=== PATIENT | male | born 1980 | race Caucasian/White ===

== ENCOUNTER 2016-04-06 20:31 | Emergency (ER) | payer OTHER ==
[~2016-04-06] VITALS: Ht 180.3 cm; Wt 104.6 kg
[~2016-04-06 20:31] MED LIST: IBUP-1050 PO; NRN/300 PO
[2016-04-06 20:40] VITALS: TEMP 37
[2016-04-06] MEDS ORDERED: CYM/30 PO (21:27)
[2016-04-06] MEDS ORDERED: MISCTAB PO (21:28)
[2016-04-06] MEDS ORDERED: [UNRECOGNIZED DRUG - OTHER] NAE (21:29)
[2016-04-06] MEDS ORDERED: ALBUT/IPRATROP 3MG/0.5MG NEB 3 ML VIAL INH STA (21:29)
[2016-04-06] MEDS ORDERED: ALBUT/IPRATROP 3MG/0.5MG NEB 3 ML VIAL ONE (21:29)
[2016-04-06 21:35] VITALS: O2SAT 96
--- NOTE | 2016-04-06 21:43 | DIAGNOSTIC IMAGING REPORT ---
SINGLE VIEW CHEST CLINICAL HISTORY: Dyspnea. FINDINGS: An AP, portable, upright chest radiograph is compared to study dated 03/23/2015. The examination is degraded by portable technique and patient rotation. The cardiomediastinal silhouette is top normal for projection. Chronic interstitial thickening is unchanged. No airspace consolidation or pleural effusion is identified. No pneumothorax is seen. The bony thorax is grossly intact. Fusion hardware is noted in the lower cervical spine. IMPRESSION: No active disease in the chest. Electronically signed by: Rolando Lowery M.D. 04/06/2016 9:42 PM Dictated Date/Time: 04/06/2016 9:41 PM
[2016-04-06] MEDS ORDERED: PROCHLORPERAZINE 5 MG/ML 2 ML VIAL IV STA (21:48)
[2016-04-06] MEDS ORDERED: KETOROLAC TROMETHAMINE 30 MG/ML VIAL IV STA (21:48)
[2016-04-06] MEDS ORDERED: SODIUM CHLORIDE 0.9% 1000ML 1,000 ML IV STA (21:48)
[2016-04-06] MEDS ORDERED: DiphenhydrAMINE HCL 50 MG/ML VIAL IV STA (21:48)
[2016-04-06] MEDS ORDERED: METHYLPREDNISOLONE 125 MG VIAL IV STA (21:48)
[2016-04-06 21:52] VITALS: Ht 180.3 cm; Wt 104.6 kg
--- NOTE | 2016-04-06 21:53 | EMERGENCY ROOM VISIT NOTE ---
History Report prepared by Felicita: Denisse Childress Under the Supervision of: Dr. Reji Fuentes M.D. First contact with patient: 21:35 Chief Complaint: RESPIRATORY PROBLEMS Stated Complaint: TROUBLE & BURNING WHEN BREATHING,HEADACHE Nursing Triage Summary: Patient ambulatory to triage, states "I am having trouble breathing with burning in my chest and a cough. I have pressure behind my eyes and they feel like they're going to pop out. I have a runny nose. This all started last week and I got worse on Wednesday." History of Present Illness The patient is a 35 year old male who presents to the Emergency Room with complaints of worsening respiratory difficulties with onset one week ago. One week ago, he started to develop a sore throat. He then started to have a runny nose and difficulty breathing. The patient states that he has a burning sensation in his throat and chest. The patient also has a cough. He relates that he smokes and that he now cannot smoke as much as he usually does. Source of History: patient Onset: one week ago Position: chest Quality: other (respiratory difficulty) Timing: worsening Associated Symptoms: + cough Note: He then started to have a runny nose. The patient states that he has a burning sensation in his throat and chest. Review of Systems See HPI for pertinent positives & negatives. A total of 10 systems reviewed and were otherwise negative. Past Medical & Surgical Medical Problems: (1) Anxiety (2) Asthma (3) Cervical disc disease (4) Cervical radiculopathy (5) Chronic back pain (6) Chronic neck pain (7) Depression (8) Foot pain, left (9) Ganglion cyst of left foot (10) GERD (gastroesophageal reflux disease) (11) HTN (hypertension) (12) Low back pain (13) Lumbar strain (14) Neuropathy (15) Polyneuropathy Surgical Problems: (1) Hernia repair (2) History of herniorrhaphy (3) Inguinal hernia (4) Orthopedic Surgery (5) S/P right knee arthroscopy Social History Problems: (1) Poor dental hygiene Family History Diabetes mellitus FHx: gallbladder disease Heart disease Hypertension Lung disease Seizures Social History Smoking Status: Current Every Day Smoker Alcohol Use: none Drug Use: none Marital Status: Housing Status: lives with family, lives with significant other Occupation Status: employed Current/Historical Medications Scheduled Duloxetine Hcl (Cymbalta), 30 MG PO DAILY Gabapentin (Neurontin), 900 MG PO TID Misc Natural Products (Sinus Formula), 1 TAB PO BID Prednisone (Prednisone Tab), 0 PO DAILY Scheduled PRN Ibuprofen (Advil), 600 MG PO Q4 PRN for Pain [Vapor Inhaler], 2 INHA JAM BID PRN for CONGESTION Allergies Coded Allergies: Penicillins (Verified Allergy, Unknown, BREATHING DIFFICULTIES, BUT CAN TAKE AMOXICILLIN, 04/06/16) PER YULI HANSON, PT TAKES AMOXICILLIN W/O PROBLEM. GP Physical Exam Vital Signs Date Time Temp Pulse Resp B/P Pulse Ox O2 Delivery O2 Flow Rate FiO2 04/06/16 23:24 105 18 135/80 96 04/06/16 22:57 102 20 145/108 100 Nebulizer 13.0 04/06/16 22:16 86 20 96 Mask Nebulizer 04/06/16 21:49 95 04/06/16 21:35 96 Room Air 04/06/16 21:35 96 Room Air 04/06/16 21:34 96 Room Air 04/06/16 20:42 98 Room Air 04/06/16 20:40 37.0 102 20 150/99 98 Room Air Physical Exam GENERAL: Patient is a healthy-appearing well-nourished HEAD: Normocephalic atraumatic EYES: Ocular movements intact pupils equal and react to light OROPHARYNX mucous membranes are moist no exudates present no erythema or edema present NECK: Supple no nuchal rigidity CHEST: Good equal expansion LUNGS: Diffuse wheezing throughout. CARDIAC: Normal S1 and S2 ABDOMEN: Soft nontender no guarding BACK: No CVA tenderness EXTREMITIES: No pain upon palpation normal muscle strength in all groups no clubbing cyanosis or edema NEURO: Patient is following commands is answering questions appropriately. Alert and oriented x3 Cranial Nerves 2-12 grossly intact Medical Decision & Procedures ER Provider Diagnostic Interpretation: X-ray results as stated below per interpretation by me and the radiologist: SINGLE VIEW CHEST CLINICAL HISTORY: Dyspnea. FINDINGS: An AP, portable, upright chest radiograph is compared to study dated 03/23/2015. The examination is degraded by portable technique and patient rotation. The cardiomediastinal silhouette is top normal for projection. Chronic interstitial thickening is unchanged. No airspace consolidation or pleural effusion is identified. No pneumothorax is seen. The bony thorax is grossly intact. Fusion hardware is noted in the lower cervical spine. IMPRESSION: No active disease in the chest. Electronically signed by: Rolando Lowery M.D. 04/06/2016 9:42 PM Dictated Date/Time: 04/06/2016 9:41 PM Laboratory Results 04/06/16 21:48 Red Blood Count 5.25, Mean Corpuscular Volume 85.9, Mean Corpuscular Hemoglobin 30.3, Mean Corpuscular Hemoglobin Concent 35.3, Mean Platelet Volume 9.4, Neutrophils (%) (Auto) 68.2, Lymphocytes (%) (Auto) 15.1, Monocytes (%) (Auto) 11.7, Eosinophils (%) (Auto) 4.4, Basophils (%) (Auto) 0.4, Neutrophils # (Auto ) 6.49, Lymphocytes # (Auto) 1.44, Monocytes # (Auto) 1.11, Eosinophils # (Auto ) 0.42, Basophils # (Auto) 0.04 04/06/16 21:48 Test 04/06/16 21:48 04/06/16 22:15 White Blood Count 9.52 K/uL (4.8-10.8) Red Blood Count 5.25 M/uL (4.7-6.1) Hemoglobin 15.9 g/dL (14.0-18.0) Hematocrit 45.1 % (42-52) Mean Corpuscular Volume 85.9 fL (80-100) Mean Corpuscular Hemoglobin 30.3 pg (25-34) Mean Corpuscular Hemoglobin Concent 35.3 g/dl (32-36) Platelet Count 195 K/uL (130-400) Mean Platelet Volume 9.4 fL (7.4-10.4) Neutrophils (%) (Auto) 68.2 % Lymphocytes (%) (Auto) 15.1 % Monocytes (%) (Auto) 11.7 % Eosinophils (%) (Auto) 4.4 % Basophils (%) (Auto) 0.4 % Neutrophils # (Auto) 6.49 K/uL (1.4-6.5) Lymphocytes # (Auto) 1.44 K/uL (1.2-3.4) Monocytes # (Auto) 1.11 K/uL (0.11-0.59) Eosinophils # (Auto) 0.42 K/uL (0-0.5) Basophils # (Auto) 0.04 K/uL (0-0.2) RDW Standard Deviation 42.1 fL (36.4-46.3) RDW Coefficient of Variation 13.3 % (11.5-14.5) Immature Granulocyte % (Auto) 0.2 % Immature Granulocyte # (Auto) 0.02 K/uL (0.00-0.02) Anion Gap 10.0 mmol/L (3-11) Est Creatinine Clear Calc Drug Dose 151.4 ml/min Estimated GFR () 131.2 Estimated GFR (Non- 113.2 BUN/Creatinine Ratio 8.9 (10-20) Calcium Level 8.6 mg/dl (8.5-10.1) Total Bilirubin 0.3 mg/dl (0.2-1) Aspartate Amino Transf (AST/SGOT) 18 U/L (15-37) Alanine Aminotransferase (ALT/SGPT) 28 U/L (12-78) Alkaline Phosphatase 110 U/L (45-117) Total Protein 7.0 gm/dl (6.4-8.2) Albumin 3.8 gm/dl (3.4-5.0) Globulin 3.2 gm/dl (2.5-4.0) Albumin/Globulin Ratio 1.2 (0.9-2) Influenza Type A Antigen Neg for Influ A (NEG) Influenza Type B Antigen Neg for Influ B (NEG) Labs reviewed by ED physician. Medications Administered Medications (Trade) Dose Ordered Sig/Jamila Route Start Time Stop Time Status Last Admin Dose Admin Albuterol/ Ipratropium 3 ml 3 ml STK-MED ONCE .ROUTE 04/06/16 21:29 04/06/16 21:31 DC 04/06/16 21:33 3 ML Sodium Chloride (Nss 1000ml) 1,000 ml @ 999 mls/hr Q1H1M STAT IV 04/06/16 21:48 04/06/16 22:48 DC 04/06/16 22:05 999 MLS/HR Ketorolac Tromethamine (Toradol Inj) 30 mg NOW STAT IV 04/06/16 21:48 04/06/16 21:50 DC 04/06/16 22:05 30 MG Methylprednisolone Sodium Succinate (Solu-Medrol IV) 125 mg NOW STAT IV 04/06/16 21:48 04/06/16 21:50 DC 04/06/16 22:05 125 MG Prochlorperazine Edisylate (Compazine Inj) 10 mg NOW STAT IV 04/06/16 21:48 04/06/16 21:50 DC 04/06/16 22:05 10 MG Diphenhydramine HCl (Benadryl Inj) 50 mg NOW STAT IV 04/06/16 21:48 04/06/16 21:50 DC 04/06/16 22:05 50 MG Hydrocodone Bit/ Homatropine Methylb (Hycodan Elix Homepack 5/1.5MG/ 5ML) 1 homepack UD ONCE PO 04/06/16 23:00 04/06/16 23:01 DC 04/06/16 23:21 1 HOMEPACK Albuterol (Ventolin Hfa Inhaler) 2 puffs NOW STAT INH 04/06/16 23:06 04/06/16 23:08 DC 04/06/16 23:21 2 PUFFS ECG Indication: SOB/dyspnea Rate (beats per minute): 102 Rhythm: sinus tachycardia Findings: no acute ischemic change, no ectopy ED Course 2144: Past medical records reviewed. The patient was evaluated in room C12. A complete history and physical examination was performed. 2128: Duoneb 3 ml INH 2147: Benadryl 50 mg IV, Compazine 10 mg IV, Solu-Medrol 125 mg IV, Toradol 30 mg IV, Sodium Chloride 1000 ml @ 999 mls/hr IV 2300: Hydrocodone Bit/ Homatropine Methylb 1 homepack PO 2306: Albuterol 2 puffs INH 2308: Upon reexamination the patient is doing well. I discussed results and treatment plan with the patient. He verbalizes agreement and understanding. The patient is ready for discharge. Medical Decision The patient is a 35 year old male who presents to the ED with complaints of respiratory difficulty. Differential diagnosis: Etiologies such as infections, reactive airway disease, pneumonia, pneumothorax , COPD, CHF, cardiac ischemia, pulmonary embolism, musculoskeletal, gastrointestinal, as well as others were entertained. This is a 35-year-old male who presents emergency department complaining of shortness of breath. The patient was given an hour-long breathing treatment, and given Hycodan along with an albuterol inhaler. Repeat examination revealed improvement patient's symptoms. I do believe that the patient as well as to be discharged home for follow-up with his primary care physician. Patient will also be started on solu Medrol along with prednisone. Patient was in agreement with the treatment plan. Impression Primary Impression: Bronchitis Scribe Attestation The scribe's documentation has been prepared under my direction and personally reviewed by me in its entirety. I confirm that the note above accurately reflects all work, treatment, procedures, and medical decision making performed by me. Departure Information Dispostion Home / Self-Care Prescriptions Prednisone (Prednisone Tab) 20 Mg Tab 0 PO DAILY, #7 TAB 2 TABS DAILY FOR 2 DAYS, THEN 1 TAB DAILY FOR 2 DAYS, THEN 1/2 TAB DAILY FOR 2 DAYS. Prov: Reji Fuentes MD 04/06/16 Referrals No Doctor, Assigned (PCP) Forms HOME CARE DOCUMENTATION FORM, IMPORTANT VISIT INFORMATION, WORK / SCHOOL INSTRUCTIONS Patient Instructions Bronchitis Acute, My [facility] Additional Instructions Use inhaler twice every 6 hours You have been examined and treated today on an emergency basis only. This is not a substitute for, or an effort to provide, complete comprehensive medical care. It is impossible to recognize and treat all injuries or illnesses in a single emergency department visit. It is therefore important that you follow up closely with your PCP. Call as soon as possible for an appointment. Thank you for your time and consideration. I look forward to speaking with you again soon. Please don't hesitate to call us if you have any questions.
[2016-04-06 22:01] LABS: BASO % 0.4 %; BASO ABS # 0.04 K/uL (0-0.2); COMPLETE YES; EOS % 4.4 %; HEMATOCRIT 45.1 % (42-52); IG% 0.2 %; LYMPH % 15.1 %; LYMPH ABS # 1.44 K/uL (1.2-3.4); MEAN CELL VOLUME 85.9 fL (80-100); MEAN CORPUSCULAR HEMOGLOBIN 30.3 pg (25-34); MEAN CORPUSCULAR HGB CONC 35.3 g/dl (32-36); MEAN PLATELET VOLUME 9.4 fL (7.4-10.4); MONO % 11.7 %; NEUT % 68.2 %; PLATELET COUNT 195 K/uL (130-400); RED BLOOD COUNT 5.25 M/uL (4.7-6.1); WHITE BLOOD COUNT 9.52 K/uL (4.8-10.8)
[2016-04-06 22:18] LABS: BUN/CREATININE RATIO 8.9 (10-20); CALCIUM 8.6 mg/dl (8.5-10.1); CREATININE 0.83 mg/dl (0.60-1.40)
[2016-04-06 22:21] LABS: ALB/GLOB RATIO 1.2 (0.9-2)
[2016-04-06] MEDS ORDERED: HYCODAN 60ML BOTTLE HOMEPACK PO ONE (23:00)
[2016-04-06] MEDS ORDERED: ALBUTEROL HFA 8 GM INHALER INH STA (23:06)
[2016-04-06] MEDS ORDERED: PRED20TA2 PO (23:08)
[2016-04-06 23:24] VITALS: BP 135/80; PULSE 105; O2SAT 96
== END 2016-04-06 23:25 | disposition home or self-care (01) ==
LOC: C.EDB 20:32 → C.EDC 23:25
DX: J40 Bronchitis, not specified as acute or chronic (principal); F17.200 Nicotine dependence, unspecified, uncomplicated; F41.9 Anxiety disorder, unspecified; F32.9 Major depressive disorder, single episode, unspecified; M54.5 Low back pain; K21.9 Gastro-esophageal reflux disease without esophagitis; G62.9 Polyneuropathy, unspecified; Z83.3 Family history of diabetes mellitus; Z82.49 Family history of ischemic heart disease and other diseases of the circulatory system; Z82.0 Family history of epilepsy and other diseases of the nervous system

== ENCOUNTER 2016-07-06 18:40 | Emergency (ER) | payer OTHER ==
[~2016-07-06] VITALS: Ht 180.3 cm; Wt 101.4 kg
[~2016-07-06 18:40] MED LIST changes: +CYM/30 PO; +MISCTAB PO; +PRED20TA2 PO; +[UNRECOGNIZED DRUG - OTHER] NAE
[2016-07-06 18:46] VITALS: TEMP 36.5; Ht 180.3 cm; Wt 101.4 kg
[2016-07-06] MEDS ORDERED: HYDR-5688 PO (19:03)
[2016-07-06 19:13] VITALS: BP 137/87; PULSE 83; O2SAT 95
--- NOTE | 2016-07-07 00:59 | EMERGENCY ROOM VISIT NOTE ---
ED Visit Note First contact with patient: 18:49 CHIEF COMPLAINT: Right sided tooth and jaw pain. HISTORY OF PRESENT ILLNESS: Mr. Abdullahi is a 36-year-old white male who ambulates into the ED accompanied by male friend complaining of right sided mandibular dental pain. Historically patient reports she is always had severe dental disease and has not seen a dentist for many years. He reports he recently had a change of insurance and when he attempted to contact the dentist for a office visit the dentist reported he was no longer covering that insurance. Patient reports just one week ago he was chewing beef jerky late one night and when he awoke he had severe right mandibular dental pain. He describes his pain as a deep achy sensation. He rates his discomfort 8/10. The pain is actually located from tooth 25 extending to tooth 30. His pain worsens with chewing and palpation. He has not identified any alleviating factors related to the pain. He reports she's been using [id number] medications without relief of his discomfort. He denies any associated symptoms including fevers, chills, sweats, skin eruptions, skin color changes, facial swelling/redness, voice changes, sore throat, difficulty swallowing, neck pain/stiffness, cough, shortness of breath, wheezing, nausea, vomiting. REVIEW OF SYSTEMS: As noted above in History of Present Illness. 8 body systems were reviewed with this patient and found to be negative unless noted above otherwise. PMH: Cervical disc disease radiculopathy, asthma, chronic back pain, GERD, anxiety, depression, hypertension, status post unspecified hernia repair, hemorrhoidectomy, unspecified knee surgery CURRENT MEDICATION: Normal, Aleve. ALLERGIES TO MEDICATION: Patient denies. SOCIAL HISTORY: Patient is currently employed; he feels safe in his home environment; he admits to tobacco use. PHYSICAL EXAM: Vital Signs: Date Time Temp Pulse Resp B/P Pulse Ox O2 Delivery O2 Flow Rate FiO2 07/06/16 19:13 83 14 137/87 95 07/06/16 18:46 36.5 85 18 151/96 98 Room Air General: 36 year-old white male in mild distress due to pain, nontoxic appearing , afebrile and hemodynamically stable. Neurological: Awake, alert and oriented to person, place and time. Answering questions appropriately and following commands. Normal gait. Good hand eye coordination. No focal motor or sensory deficits. Skin: Warm, dry and pink. No soft tissue lesions, rashes, or trauma noted. HEENT: Atraumatic and normocephalic. Oral cavity is moist and pink. Airway is patent. Uvula is midline and no abscesses are seen. Airway is patent. Speech is normal. No drooling. Patient has significant dental disease throughout his mouth. Most of the teeth have been eroded to the gumline. In the area of his pain I do not see any erythema or edema over the gingiva. There are multiple teeth that are tender to palpation. I was not able to palpate any abscesses or lymphadenopathy. Airway is patent. ED COURSE: Patient is assessed as noted above. Patient is educated about his findings and instructed on his treatment plan; he verbalizes understanding and agreement with this plan. CLINIC IMPRESSION: Dental pain. DISPOSITION: Patient discharged home in stable condition; prior to departure she was reassessed and subjectively reported she was feeling the same. PLAN: Comfort measures were discussed including a mechanical soft diet, covering his teeth with dental wax and sliding pain scale of ibuprofen, acetaminophen and [place]. He was warned that [place] is a narcotic and once taking this medication he should not drink, drive or do any activities that require her full attention. Patient was encouraged to followup with personal dentist for definitive care and treatment. Patient was encouraged to return the ED for facial swelling or fevers.
== END 2016-07-06 19:25 | disposition home or self-care (01) ==
LOC: C.EDB 18:41 → C.EDD 19:25
DX: K08.89 Other specified disorders of teeth and supporting structures (principal); F17.200 Nicotine dependence, unspecified, uncomplicated; M54.12 Radiculopathy, cervical region; J45.909 Unspecified asthma, uncomplicated; M54.9 Dorsalgia, unspecified; K21.9 Gastro-esophageal reflux disease without esophagitis; F41.9 Anxiety disorder, unspecified; F33.41 Major depressive disorder, recurrent, in partial remission; I10 Essential (primary) hypertension

== ENCOUNTER 2017-02-08 10:22 | Emergency (ER) | payer OTHER ==
[~2017-02-08] VITALS: Ht 180.3 cm; Wt 110.0 kg
[~2017-02-08 10:22] MED LIST changes: -CYM/30 PO; -MISCTAB PO; -PRED20TA2 PO; -[UNRECOGNIZED DRUG - OTHER] NAE
[2017-02-08 10:39] VITALS: TEMP 36.7; Ht 180.3 cm; Wt 110.0 kg
[2017-02-08] MEDS ORDERED: IBUPROFEN 600 MG TAB PO STA (10:58)
[2017-02-08] MEDS ORDERED: BUPR8SUB19 SL (11:20)
--- NOTE | 2017-02-08 11:21 | EMERGENCY ROOM VISIT NOTE ---
ED Visit Note First contact with patient: 10:47 CHIEF COMPLAINT: Foot pain HISTORY OF PRESENTING ILLNESS: This 36-year-old male presents to the emergency department with complaint of right foot pain. Patient reports that he sustained an injury to the right foot approximately 45 minutes ago, states he was carrying a heavy object and stepped on a pile of frozen dirt, with sudden severe pain in the side of his right foot. He denies any twisting or inversion of the foot or crush injury to the foot. Patient complains of swelling and pain along the lateral side of the right foot. Patient is not able to bear weight on the foot due to pain. Patient reports the pain is constant, moderate to severe, worse with movement of the foot and with attempts to weight bear, 10/10. He did not take any medication for the pain prior to arrival Denies any ankle pain, knee pain, hip pain, back pain, numbness or tingling in the leg or foot, rash or skin abrasions, dizziness or syncope. REVIEW OF SYSTEMS: A complete 6 point review of systems was reviewed with the patient with pertinent positives and negatives as per history of present illness. All else were negative. PMH: No prior significant injury to the right foot. The patient is on Suboxone for chronic pain management, and reports a history of neuropathy in his feet. He is not a diabetic. SOCIAL HISTORY: Patient lives at home. He is a current every day smoker. PHYSICAL EXAM: Vital Signs: Reviewed Nurse's notes. CONSTITUTIONAL: No acute distress, but appears to be uncomfortable and in pain throughout exam. HEENT: Normocephalic, atraumatic. RESPIRATORY: Clear to auscultation bilaterally with no wheezing, crackles, rhonchi or stridor. Equal expansion bilaterally. CARDIOVASCULAR: Regular rate and rhythm with no murmurs, rubs or gallops. Normal peripheral perfusion. No edema. GASTROINTESTINAL: Soft, nontender, nondistended. Bowel sounds present in all quadrants. MUSCULOSKELETAL: There is tenderness and mild swelling to the lateral right foot , point tender over the proximal fifth metatarsal. The foot is otherwise nontender, no erythema or ecchymosis noted. DP pulse 2+ with brisk cap refill, sensation intact distal to the injury. Full range of motion of the right ankle and knee without any pain. INTEGUMENTARY: No abrasions or breaks in the skin over the foot . NEUROLOGIC: Alert and oriented 4. No focal neurologic deficits noted. IMAGING: R FOOT MIN 3 VIEWS ROUTINE HISTORY: 36 years-old Male foot pain, proximal lateral metatarsal acute right foot pain, most pronounced laterally COMPARISON: None available TECHNIQUE: 3 views of the right foot FINDINGS: There are 2 transversely oriented lucencies involving the proximal metadiaphyseal portion of the fifth metatarsal, the more proximal transverse lucency appears to demonstrate sclerotic margins and the more distal transverse lucency appears to demonstrate more lucent margins. No displaced fracture identified. Mild associated soft tissue swelling. Mild first MTP joint degenerative changes. No opaque foreign body. Moderate spurring about the calcaneus and dorsal talus. IMPRESSION: Two transversely oriented lucencies involving the proximal metadiaphyseal portion of the fifth metatarsal are noted as above without displacement suggesting possible acute on subacute fractures. Fractures within this distribution (Morgan fracture) have been reported to demonstrate delayed union or nonunion. Follow-up recommended. EMERGENCY DEPARTMENT COURSE: I examined the patient. Differential diagnosis includes sprain/strain, contusion, fracture, among others. Patient was given Motrin and an ice pack for his foot pain. X-ray of the right foot reveals acute nondisplaced fracture of the proximal fifth metatarsal. Patient updated on all results and plan for discharge. He was placed in a right foot post-op shoe, and provided with crutches. He was instructed to follow up with orthopedics in the next week. He was also educated on return precautions should his symptoms worsen in any way, he verbalized understanding. Patient was discharged home in stable condition. Problem List Medical Problems: (1) Anxiety Status: Chronic (2) Asthma Status: Chronic (3) Cervical disc disease Status: Chronic (4) Cervical radiculopathy Status: Resolved (5) Chronic back pain Status: Chronic (6) Chronic neck pain Status: Chronic (7) Depression Status: Chronic (8) Foot pain, left Status: Resolved (9) Ganglion cyst of left foot Status: Resolved (10) GERD (gastroesophageal reflux disease) Status: Chronic (11) HTN (hypertension) Status: Chronic (12) Low back pain Status: Resolved (13) Lumbar strain Status: Resolved (14) Neuropathy Status: Resolved (15) Polyneuropathy Status: Chronic Surgical Problems: (1) Hernia repair Status: Resolved (2) History of herniorrhaphy Permanent Comment: right Status: Resolved (3) Inguinal hernia Status: Resolved (4) Orthopedic Surgery Status: Resolved (5) S/P right knee arthroscopy Permanent Comment: 2002 Status: Resolved Social History Problems: (1) Poor dental hygiene Status: Chronic Current/Historical Medications Scheduled Buprenorphine Hcl (Subutex), 2 TAB SL DAILY Gabapentin (Neurontin), 900 MG PO TID Scheduled PRN Ibuprofen (Advil), 600 MG PO Q4 PRN for Pain Allergies Coded Allergies: Penicillins (Verified Allergy, Unknown, BREATHING DIFFICULTIES, BUT CAN TAKE AMOXICILLIN, 02/08/17) PER YULI HANSON, PT TAKES AMOXICILLIN W/O PROBLEM. GP Vital Signs Date Time Temp Pulse Resp B/P (MAP) Pulse Ox O2 Delivery O2 Flow Rate FiO2 02/08/17 12:21 78 16 176/110 99 Room Air 02/08/17 10:39 36.7 87 18 157/102 95 Room Air Medications Administered Medications (Trade) Dose Ordered Sig/Jamila Route Start Time Stop Time Status Last Admin Dose Admin Ibuprofen (Motrin Tab) 600 mg NOW STAT PO 02/08/17 10:58 02/08/17 11:00 DC 02/08/17 11:07 600 MG Departure Information Impression Primary Impression: Fracture of metatarsal of right foot, closed Dispostion Home / Self-Care Condition GOOD Referrals No Doctor, Assigned (PCP) Carroll Braga M.D. Patient Instructions ED Crutch Walking, ED Fx Foot, [facility] Additional Instructions Wear the postop shoe for comfort. Use the crutches to avoid any weight bearing on the right foot. Ice and elevation for the next 2 days to help reduce pain and swelling. Ibuprofen 600 mg every 6-8 hours and/or Tylenol 1000 mg every 8 hours as needed for pain. Follow-up with the orthopedic surgeon within the next week. Call for an appointment. Please return to the emergency department for severe worsening pain, numbness or discoloration of the foot, or any other concerns. Work Instructions Return To Work: 1 day Problem Qualifiers Primary Impression: Fracture of metatarsal of right foot, closed Encounter type: initial encounter Metatarsal bone: fifth Fracture alignment : nondisplaced Qualified Codes: S92.354A - Nondisplaced fracture of fifth metatarsal bone, right foot, initial encounter for closed fracture
--- NOTE | 2017-02-08 11:45 | DIAGNOSTIC IMAGING REPORT ---
R FOOT MIN 3 VIEWS ROUTINE HISTORY: 36 years-old Male foot pain, proximal lateral metatarsal acute right foot pain, most pronounced laterally COMPARISON: None available TECHNIQUE: 3 views of the right foot FINDINGS: There are 2 transversely oriented lucencies involving the proximal metadiaphyseal portion of the fifth metatarsal, the more proximal transverse lucency appears to demonstrate sclerotic margins and the more distal transverse lucency appears to demonstrate more lucent margins. No displaced fracture identified. Mild associated soft tissue swelling. Mild first MTP joint degenerative changes. No opaque foreign body. Moderate spurring about the calcaneus and dorsal talus. IMPRESSION: Two transversely oriented lucencies involving the proximal metadiaphyseal portion of the fifth metatarsal are noted as above without displacement suggesting possible acute on subacute fractures. Fractures within this distribution (Morgan fracture) have been reported to demonstrate delayed union or nonunion. Follow-up recommended. The above report was generated using voice recognition software. It may contain grammatical, syntax or spelling errors. Electronically signed by: Ty Mejias M.D. 02/08/2017 11:44 AM Dictated Date/Time: 02/08/2017 11:39 AM
[2017-02-08 12:21] VITALS: BP 176/110; PULSE 78; O2SAT 99
== END 2017-02-08 12:31 | disposition home or self-care (01) ==
LOC: C.EDB 10:23 → C.EDD 12:31
DX: S92.354A Nondisplaced fracture of fifth metatarsal bone, right foot, initial encounter for closed fracture (principal); W18.49XA Other slipping, tripping and stumbling without falling, initial encounter; F17.200 Nicotine dependence, unspecified, uncomplicated; J45.909 Unspecified asthma, uncomplicated; I10 Essential (primary) hypertension

== ENCOUNTER 2021-05-24 19:36 | Observation (INO) ==
--- NOTE | 2021-05-24 19:57 | Emergency Department Note ---
History of Present Illness General Chief complaint: Dizziness Stated complaint: DIZZINESS,LIGHTHEADED,EXHAUSTED Time Seen by Provider: 05/24/21 19:45 History of Present Illness This is a 41-year-old male that presents to the emergency department via private vehicle with complaints of "dizziness, lightheadedness, exhausted". The patient notes that for the past 1 to 2 weeks he has been waking up and feeling lig htheaded and dizzy. He notes that it normally resolves after 10 to 15 minutes. He then notes that it then started occurring occasionally throughout the day. That he notes this past into Wednesday around midnight he woke up and was quite dizzy and lightheaded. He notes that the lightheadedness was very intense. He had to sit down/stop walking as he felt like he was going to fall. Then notes that symptoms have been progressively worsening since that time. He feels as though he is going to pass out. He attempted to establish follow-up in the outpatient setting with PCP however has been unsuccessful this week and notes a follow-up is scheduled for this coming week. Patient also feels cold. He describes the dizziness as sometimes as room spinning but that also times is lightheadedness. He feels extremely exhausted. He does note yesterday he felt like he had some speech troubles but none today. He denies any focal weakness. No chest pain or shortness of breath. No trauma or injury. No fever. Home Medications Medication Instructions Recorded Confirmed Type cyclobenzaprine 10 mg tablet 10 mg PO TID PRN #90 tab 06/03/20 05/24/21 Rx gabapentin 800 mg tablet 800 mg PO TID #90 tab 06/03/20 05/24/21 Rx ibuprofen 800 mg tablet 800 mg PO TID PRN #90 tab 06/03/20 05/24/21 Rx clonidine HCl 0.1 mg tablet 0.1 mg PO BID #60 tab 06/17/20 05/24/21 Rx buprenorphine HCl 8 mg sublingual 8 mg SUBLINGUAL BID tab 12/12/20 05/24/21 History tablet citalopram 20 mg tablet (Celexa) 20 mg PO DAILY #90 tab 12/23/20 05/24/21 Rx mometasone-formoterol HFA 100 2 puff INHALATION BID PRN #8.8 g 12/23/20 05/24/21 Rx mcg-5 mcg/actuation aerosol inhaler cholecalciferol (vitamin D3) 50 50 mcg PO DAILY #90 cap 04/14/21 05/24/21 Rx mcg (2,000 unit) capsule folic acid 1 mg tablet 1 mg PO DAILY #90 tab 04/14/21 05/24/21 Rx lisinopril 20 mg tablet 20 mg PO DAILY #90 tab 04/14/21 05/24/21 Rx buspirone 5 mg tablet 5 mg PO TID PRN 05/24/21 05/24/21 History diclofenac sodium 1 % topical gel 2 g TOPICAL QID PRN 05/24/21 05/24/21 History Allergies Allergy/AdvReac Type Severity Reaction Status Date / Time Penicillins Allergy Unknown BREATHING Verified 05/24/21 20:23 DIFFICULTIES, BUT CAN TAKE AMOXICILLIN Past Med/Surg History Medical History Generalized anxiety disorder with panic attacks Major depression, recurrent Tobacco use disorder Vitamin D deficiency Surgical History History of neck surgery S/P cervical spinal fusion S/P right knee arthroscopy "2001" Family History Aunt Colorectal cancer Father Myocardial infarction Stroke Denies family history of Ovarian cancer Prostate cancer Breast cancer Social History Smoking Status: Current every day smoker Years Smoked: 30; Cigarettes Per Day: 1 pack per day; Hx Alcohol Use: No Hx Substance Use: Yes Preferred Language: Uzbek marital status: Current Living Situation: Family current occupational status: employed How many Children do You have: 2 Feels Safe at Home: Yes Childhood Exposure to Second-Hand Smoke: Yes Dental Care, Regularly: No Physical Activity Frequency: 3-4 Times per Week Seatbelt Use: always Sunscreen Use: No Review of Systems A total of 10 systems reviewed and were otherwise negative Physical Exam Vital Signs Vital Signs - 24 hr 05/24/21 19:38 05/24/21 20:10 05/24/21 20:38 Temperature 37.3 C Temperature Source Temporal Artery Scan Pulse Rate - Lying 76 Pulse Rate - Sitting 89 Pulse Rate - Standing 90 Pulse Rate 97 H 86 Pulse Rate [Apical] 83 Respiratory Rate 16 18 Blood Pressure - Lying 164/100 H Blood Pressure - Sitting 182/107 H Blood Pressure- Standing 165/115 H Blood Pressure 200/114 H Blood Pressure [Right Arm] 177/106 H Blood Pressure Mean 142 Blood Pressure Mean [Right Arm] 129 Blood Pressure Position [Right Arm] Sitting Pulse Oximetry 97 98 Oxygen Delivery Method Room Air Room Air Sepsis Recent Fever Within 48 Hours No Sepsis New/Unexplained Change in Mental Status N/A Sepsis Action Taken by Nursing No Action Required Pulse Oximetry Post Tiitration 98 05/24/21 22:00 05/25/21 01:15 Temperature Temperature Source Pulse Rate - Lying Pulse Rate - Sitting Pulse Rate - Standing Pulse Rate Pulse Rate [Apical] 65 83 Respiratory Rate 16 18 Blood Pressure - Lying Blood Pressure - Sitting Blood Pressure- Standing Blood Pressure Blood Pressure [Right Arm] 145/100 H 172/113 H Blood Pressure Mean Blood Pressure Mean [Right Arm] 115 132 Blood Pressure Position [Right Arm] Sitting Pulse Oximetry 98 96 Oxygen Delivery Method Sepsis Recent Fever Within 48 Hours Sepsis New/Unexplained Change in Mental Status Sepsis Action Taken by Nursing Pulse Oximetry Post Tiitration VITAL SIGNS - Vital signs and nursing notes were reviewed. Stable and afebrile. GENERAL -41-year-old male appearing his stated age who is in no acute distress. Communicates well with provider and answers questions appropriately. SKIN - Without rashes. No meningeal or petechial rash. HEAD - NC/AT. EYES - PERRL with EOMI bilaterally. Sclera anicteric. Palpebral conjunctiva pink and moist with no injection noted. Mild nystagmus horizontally noted. EARS - No deformities of external structures noted on gross examination bilaterally. No pain elicited with palpation of the tragus bilaterally. External auditory canals without discharge or otorrhea. Mild yellowish fluid noted behind bilateral TMs without bulging. No perforation. NOSE - Midline and without cyanosis. No epistaxis or purulent drainage noted. Septum midline without deviation or septal hematoma noted. MOUTH/OROPHARYNX - Without perioral cyanosis. Buccal mucosa pink and moist and without leukoplakia. Tongue midline with equal elevation of palate bilaterally. No tonsillar hypertrophy, erythema, or exudates noted. Fair dentition noted. NECK - Neck with FROM. Supple to palpation. No lymphadenopathy noted. No nuchal rigidity. LUNGS - Chest wall symmetric without accessory muscle use, intercostals ret ractions, or central cyanosis. Normal vesicular breath sounds CTA B/L. No wheezes, rales, or rhonchi appreciated. CARDIAC - RRR with S1/S2. No murmur, rubs, or gallops appreciated. EXTREMITIES - No clubbing or peripheral cyanosis. +5/5 strength noted in UE/LE bilaterally. NEUROLOGIC - Cranial nerves II through XII grossly intact. Sensory intact to light touch throughout. Negative [id number]. PSYCH - A&Ox3 and cooperates fully with examiner. Pt is very pleasant and interacts well with examiner. Course Administered Medications Discontinued Medications Clonidine HCl (Clonidine Hcl 0.1 Mg Tab) 0.1 mg PO NOW ONE Stop: 05/25/21 01:23 Last Admin: 05/25/21 01:47 Dose: 0.1 mg Documented by: [id number] Diazepam (Diazepam 5 Mg/Ml Inj 10ml Vial) 5 mg IV NOW STA Stop: 05/24/21 20:10 Last Admin: 05/24/21 20:33 Dose: 5 mg Documented by: [id number] Gabapentin (Gabapentin 800 Mg Tab) 800 mg PO NOW STA Stop: 05/25/21 01:23 Last Admin: 05/25/21 01:48 Dose: 800 mg Documented by: [id number] Sodium Chloride (Nss 1000ml) 1,000 mls @ 999 mls/hr IV .Q1H1M DELFINO Stop: 05/25/21 00:00 Last Infusion: 05/25/21 01:15 Dose: 0 mls/hr Documented by: [id number] Admin: 05/24/21 22:56 Dose: 999 mls/hr Documented by: [id number] Ioversol (Optiray 320 125ml) 120 ml IV ONCE ONE Stop: 05/24/21 21:15 Last Admin: 05/24/21 21:14 Dose: 120 ml Documented by: [id number] Lisinopril (Lisinopril 20 Mg Tab) 20 mg PO NOW STA Stop: 05/25/21 01:23 Last Admin: 05/25/21 01:47 Dose: 20 mg Documented by: [id number] Meclizine HCl (Meclizine Hcl 25 Mg Tab) 25 mg PO NOW STA Stop: 05/24/21 22:52 Last Admin: 05/24/21 22:56 Dose: 25 mg Documented by: [id number] Medical Decision Making Laboratory Data Result diagrams: 05/24/21 20:00 05/24/21 20:00 Lab Results 05/24/21 05/24/21 05/24/21 Range/Units 20:00 20:00 20:00 WBC 13.34 H (4.8-10.8) K/uL RBC 5.53 (4.7-6.1) M/uL Hgb 17.2 (14.0-18.0) g/dL Hct 47.6 (42-52) % MCV 86.1 (80-100) fL MCH 31.1 (25-34) pg MCHC 36.1 H (32-36) g/dL RDW Std Deviation 41.8 (36.4-46.3) fL RDW Coeff of Sabrina 13.2 (11.5-14.5) % Plt Count 246 (130-400) K/uL MPV 9.1 (7.4-10.4) fL Immature Gran % (Auto) 0.1 % Neut % (Auto) 65.9 % Lymph % (Auto) 26.0 % [place] % (Auto) 7.7 % Eos % (Auto) 0.0 % Baso % (Auto) 0.3 % Neut # (Auto) 8.79 H (1.4-6.5) K/uL Lymph # (Auto) 3.47 H (1.2-3.4) K/uL [place] # (Auto) 1.03 H (0.11-0.59) K/uL Eos # (Auto) 0.00 (0-0.5) K/uL Baso # (Auto) 0.04 (0-0.2) K/uL Immature Gran # (Auto) 0.01 (0.00-0.02) K/uL ESR (0-15) mm/hr PT 10.9 (9.0-12.0) Seconds INR 1.0 (0.9-1.1) APTT 28.8 (21.0-31.0) Seconds PTT Ratio 1.0 Sodium 135 L (136-145) mmol/L Potassium 3.4 L (3.5-5.1) mmol/L Chloride 101 (98-107) mmol/L Carbon Dioxide 27 (21-32) mmol/L Anion Gap 7 (3-11) BUN 8 (6-23) mg/dl Creatinine 0.80 (0.6-1.4) mg/dl Est Cr Clr Drug Dosing Not Reportable Est GFR ( Amer) 127.7 ml/min Est GFR (Non-Af Amer) 110.2 ml/min BUN/Creatinine Ratio 10.0 (10-20) Glucose 119 H (70-99(Fasting)) mg/dl Lactate (0.4-2.0) mmol/L Calcium 9.2 (8.5-10.1) mg/dl Total Bilirubin 0.5 (0.2-1.0) mg/dl AST 19 (13-39) U/L ALT 19 (7-52) U/L Alkaline Phosphatase 102 (34-104) U/L Troponin I < 0.03 (0-0.04) ng/ml C-Reactive Protein (0-0.5) mg/dl Total Protein 7.2 (6.0-8.3) gm/dl Albumin 4.3 (3.4-5.0) gm/dl Globulin 2.9 (2.5-4.0) gm/dl Albumin/Globulin Ratio 1.5 (0.9-2) Procalcitonin (0-0.5) ng/ml Urine Color Urine Appearance (Clear) Urine pH (4.5-7.5) Ur Specific Dawn (1.000-1.030) Urine Protein (Negative) Urine Glucose (UA) (Negative) Urine Ketones (Negative) Urine Blood (Negative) Urine Nitrite (Negative) Urine Bilirubin (Negative) Urine Urobilinogen (Negative) Ur Leukocyte Esterase (Negative) Urine Opiates Screen (Neg) Ur Methadone, Qual (Neg) Urine Barbiturates (Neg) Ur Phencyclidine (PCP) (Neg) U Amphetamin/Meth Scrn (Neg) MDMA (Ecstasy) Screen (Neg) U Benzodiazepines Scrn (Neg) Ur Cocaine Metabolite (Neg) U Marijuana (THC) Screen (Neg) Anaplasma Smear Lyme Disease IgG Ab (Negative) Lyme Disease IgM Ab (Negative) SARS-CoV-2, RNA, NAAT (NEGATIVE) 05/24/21 05/24/21 05/24/21 Range/Units 20:00 20:00 20:00 WBC (4.8-10.8) K/uL RBC (4.7-6.1) M/uL Hgb (14.0-18.0) g/dL Hct (42-52) % MCV (80-100) fL MCH (25-34) pg MCHC (32-36) g/dL RDW Std Deviation (36.4-46.3) fL RDW Coeff of Sabrina (11.5-14.5) % Plt Count (130-400) K/uL MPV (7.4-10.4) fL Immature Gran % (Auto) % Neut % (Auto) % Lymph % (Auto) % [place] % (Auto) % Eos % (Auto) % Baso % (Auto) % Neut # (Auto) (1.4-6.5) K/uL Lymph # (Auto) (1.2-3.4) K/uL [place] # (Auto) (0.11-0.59) K/uL Eos # (Auto) (0-0.5) K/uL Baso # (Auto) (0-0.2) K/uL Immature Gran # (Auto) (0.00-0.02) K/uL ESR 23 H (0-15) mm/hr PT (9.0-12.0) Seconds INR (0.9-1.1) APTT (21.0-31.0) Seconds PTT Ratio Sodium (136-145) mmol/L Potassium (3.5-5.1) mmol/L Chloride (98-107) mmol/L Carbon Dioxide (21-32) mmol/L Anion Gap (3-11) BUN (6-23) mg/dl Creatinine (0.6-1.4) mg/dl Est Cr Clr Drug Dosing Est GFR ( Amer) ml/min Est GFR (Non-Af Amer) ml/min BUN/Creatinine Ratio (10-20) Glucose (70-99(Fasting)) mg/dl Lactate (0.4-2.0) mmol/L Calcium (8.5-10.1) mg/dl Total Bilirubin (0.2-1.0) mg/dl AST (13-39) U/L ALT (7-52) U/L Alkaline Phosphatase (34-104) U/L Troponin I (0-0.04) ng/ml C-Reactive Protein 1.86 H (0-0.5) mg/dl Total Protein (6.0-8.3) gm/dl Albumin (3.4-5.0) gm/dl Globulin (2.5-4.0) gm/dl Albumin/Globulin Ratio (0.9-2) Procalcitonin < 0.05 (0-0.5) ng/ml Urine Color Urine Appearance (Clear) Urine pH (4.5-7.5) Ur Specific Dawn (1.000-1.030) Urine Protein (Negative) Urine Glucose (UA) (Negative) Urine Ketones (Negative) Urine Blood (Negative) Urine Nitrite (Negative) Urine Bilirubin (Negative) Urine Urobilinogen (Negative) Ur Leukocyte Esterase (Negative) Urine Opiates Screen (Neg) Ur Methadone, Qual (Neg) Urine Barbiturates (Neg) Ur Phencyclidine (PCP) (Neg) U Amphetamin/Meth Scrn (Neg) MDMA (Ecstasy) Screen (Neg) U Benzodiazepines Scrn (Neg) Ur Cocaine Metabolite (Neg) U Marijuana (THC) Screen (Neg) Anaplasma Smear Lyme Disease IgG Ab (Negative) Lyme Disease IgM Ab (Negative) SARS-CoV-2, RNA, NAAT (NEGATIVE) 05/24/21 05/24/21 05/24/21 Range/Units 20:00 20:31 20:32 WBC (4.8-10.8) K/uL RBC (4.7-6.1) M/uL Hgb (14.0-18.0) g/dL Hct (42-52) % MCV (80-100) fL MCH (25-34) pg MCHC (32-36) g/dL RDW Std Deviation (36.4-46.3) fL RDW Coeff of Sabrina (11.5-14.5) % Plt Count (130-400) K/uL MPV (7.4-10.4) fL Immature Gran % (Auto) % Neut % (Auto) % Lymph % (Auto) % [place] % (Auto) % Eos % (Auto) % Baso % (Auto) % Neut # (Auto) (1.4-6.5) K/uL Lymph # (Auto) (1.2-3.4) K/uL [place] # (Auto) (0.11-0.59) K/uL Eos # (Auto) (0-0.5) K/uL Baso # (Auto) (0-0.2) K/uL Immature Gran # (Auto) (0.00-0.02) K/uL ESR (0-15) mm/hr PT (9.0-12.0) Seconds INR (0.9-1.1) APTT (21.0-31.0) Seconds PTT Ratio Sodium (136-145) mmol/L Potassium (3.5-5.1) mmol/L Chloride (98-107) mmol/L Carbon Dioxide (21-32) mmol/L Anion Gap (3-11) BUN (6-23) mg/dl Creatinine (0.6-1.4) mg/dl Est Cr Clr Drug Dosing Est GFR ( Amer) ml/min Est GFR (Non-Af Amer) ml/min BUN/Creatinine Ratio (10-20) Glucose (70-99(Fasting)) mg/dl Lactate (0.4-2.0) mmol/L Calcium (8.5-10.1) mg/dl Total Bilirubin (0.2-1.0) mg/dl AST (13-39) U/L ALT (7-52) U/L Alkaline Phosphatase (34-104) U/L Troponin I (0-0.04) ng/ml C-Reactive Protein (0-0.5) mg/dl Total Protein (6.0-8.3) gm/dl Albumin (3.4-5.0) gm/dl Globulin (2.5-4.0) gm/dl Albumin/Globulin Ratio (0.9-2) Procalcitonin (0-0.5) ng/ml Urine Color Yellow Urine Appearance Clear (Clear) Urine pH 6.5 (4.5-7.5) Ur Specific Dawn 1.005 (1.000-1.030) Urine Protein Negative (Negative) Urine Glucose (UA) Negative (Negative) Urine Ketones Negative (Negative) Urine Blood Negative (Negative) Urine Nitrite Negative (Negative) Urine Bilirubin Negative (Negative) Urine Urobilinogen Negative (Negative) Ur Leukocyte Esterase Negative (Negative) Urine Opiates Screen (Neg) Ur Methadone, Qual (Neg) Urine Barbiturates (Neg) Ur Phencyclidine (PCP) (Neg) U Amphetamin/Meth Scrn (Neg) MDMA (Ecstasy) Screen (Neg) U Benzodiazepines Scrn (Neg) Ur Cocaine Metabolite (Neg) U Marijuana (THC) Screen (Neg) Anaplasma Smear See Comment Lyme Disease IgG Ab (Negative) Lyme Disease IgM Ab (Negative) SARS-CoV-2, RNA, NAAT NEGATIVE (NEGATIVE) 05/24/21 05/25/21 05/25/21 Range/Units 20:32 01:08 01:08 WBC (4.8-10.8) K/uL RBC (4.7-6.1) M/uL Hgb (14.0-18.0) g/dL Hct (42-52) % MCV (80-100) fL MCH (25-34) pg MCHC (32-36) g/dL RDW Std Deviation (36.4-46.3) fL RDW Coeff of Sabrina (11.5-14.5) % Plt Count (130-400) K/uL MPV (7.4-10.4) fL Immature Gran % (Auto) % Neut % (Auto) % Lymph % (Auto) % [place] % (Auto) % Eos % (Auto) % Baso % (Auto) % Neut # (Auto) (1.4-6.5) K/uL Lymph # (Auto) (1.2-3.4) K/uL [place] # (Auto) (0.11-0.59) K/uL Eos # (Auto) (0-0.5) K/uL Baso # (Auto) (0-0.2) K/uL Immature Gran # (Auto) (0.00-0.02) K/uL ESR (0-15) mm/hr PT (9.0-12.0) Seconds INR (0.9-1.1) APTT (21.0-31.0) Seconds PTT Ratio Sodium (136-145) mmol/L Potassium (3.5-5.1) mmol/L Chloride (98-107) mmol/L Carbon Dioxide (21-32) mmol/L Anion Gap (3-11) BUN (6-23) mg/dl Creatinine (0.6-1.4) mg/dl Est Cr Clr Drug Dosing Est GFR ( Amer) ml/min Est GFR (Non-Af Amer) ml/min BUN/Creatinine Ratio (10-20) Glucose (70-99(Fasting)) mg/dl Lactate 0.4 (0.4-2.0) mmol/L Calcium (8.5-10.1) mg/dl Total Bilirubin (0.2-1.0) mg/dl AST (13-39) U/L ALT (7-52) U/L Alkaline Phosphatase (34-104) U/L Troponin I (0-0.04) ng/ml C-Reactive Protein (0-0.5) mg/dl Total Protein (6.0-8.3) gm/dl Albumin (3.4-5.0) gm/dl Globulin (2.5-4.0) gm/dl Albumin/Globulin Ratio (0.9-2) Procalcitonin (0-0.5) ng/ml Urine Color Urine Appearance (Clear) Urine pH (4.5-7.5) Ur Specific Dawn (1.000-1.030) Urine Protein (Negative) Urine Glucose (UA) (Negative) Urine Ketones (Negative) Urine Blood (Negative) Urine Nitrite (Negative) Urine Bilirubin (Negative) Urine Urobilinogen (Negative) Ur Leukocyte Esterase (Negative) Urine Opiates Screen Neg (Neg) Ur Methadone, Qual Neg (Neg) Urine Barbiturates Neg (Neg) Ur Phencyclidine (PCP) Neg (Neg) U Amphetamin/Meth Scrn Neg (Neg) MDMA (Ecstasy) Screen Neg (Neg) U Benzodiazepines Scrn Neg (Neg) Ur Cocaine Metabolite Neg (Neg) U Marijuana (THC) Screen Neg (Neg) Anaplasma Smear Lyme Disease IgG Ab Negative (Negative) Lyme Disease IgM Ab Negative (Negative) SARS-CoV-2, RNA, NAAT (NEGATIVE) Imaging Data Radiologist's Impression: Head CTA 05/24/21 19:55 CT angio neck with con, CT angio head wo/w CLINICAL HISTORY: 41 years-old Male with dizziness. Acute dizziness COMPARISON STUDY: CT cervical spine 07/02/2019 TECHNIQUE: Following the IV administration of 120 mL of Optiray, CT angiogram of the head and neck was performed from the aortic arch to the skull base. A noncontrast head CT was also obtained. Images are reviewed in the axial, sagittal, and coronal planes. 3-D MIPS images are created and assessed. IV contrast was administered without complication. All measurements were calculated based on NASCET criteria. A dose lowering technique was utilized adhering to the principles of ALARA. CT DOSE: 1308.40 mGy.cm FINDINGS: CT HEAD: No acute intracranial hemorrhage, midline shift, abnormal extra axial collection, hydrocephalus, acute territorial infarct or intracranial mass. No acute calvarial fracture. The mastoid air cells and paranasal sinuses are generally clear aside from mild right maxillary sinus mucosal thickening. Orbits and soft tissues are unremarkable. CTA HEAD AND NECK: Three-vessel morphology of the thoracic aortic arch with minimal atherosclerosis. Patency of the innominate and imaged subclavian arteries. The common carotid arteries are patent. There is mild atherosclerotic plaque the right carotid bulb. The middle and anterior cerebral arteries appear patent. Cod ominant and patent vertebral arteries. The basilar and posterior cerebral arteries are patent. The cerebral venous sinuses are patent. No abnormal intracranial enhancement. Mild emphysema with bronchial wall thickening. Subtle tree-in-bud micronodules of the lung apices. Unremarkable thyroid. Mild tracheobronchial secretions. Mild mucosal thickening of the right maxillary sinus. Numerous dental caries and periapical cysts. Anterior plate and screw fusion with discectomy at C5-C6. Multilevel degenerative changes of the cervical and thoracic spine. IMPRESSION: 1. No acute intracranial abnormality. 2. Minimal atherosclerotic vascular disease with otherwise unremarkable CTA of the head and neck. 3. Mild emphysema with bronchial wall thickening suggestive of bronchitis. Subtle tree-in-bud opacities of the lung apices are suggestive of an infectious or inflammatory pneumonitis. ACT 112: Negative or not required by law. The above report was generated using voice recognition software. It may contain grammatical, syntax or spelling errors. Electronically signed by: Dimitri Mejias M.D. 05/24/2021 10:01 PM Neck CTA 05/24/21 19:55 CT angio neck with con, CT angio head wo/w CLINICAL HISTORY: 41 years-old Male with dizziness. Acute dizziness COMPARISON STUDY: CT cervical spine 07/02/2019 TECHNIQUE: Following the IV administration of 120 mL of Optiray, CT angiogram of the head and neck was performed from the aortic arch to the skull base. A noncontrast head CT was also obtained. Images are reviewed in the axial, sagittal, and coronal planes. 3-D MIPS images are created and assessed. IV contrast was administered without complication. All measurements were calculated based on NASCET criteria. A dose lowering technique was utilized adhering to the principles of ALARA. CT DOSE: 1308.40 mGy.cm FINDINGS: CT HEAD: No acute intracranial hemorrhage, midline shift, abnormal extra axial co llection, hydrocephalus, acute territorial infarct or intracranial mass. No acute calvarial fracture. The mastoid air cells and paranasal sinuses are generally clear aside from mild right maxillary sinus mucosal thickening. Orbits and soft tissues are unremarkable. CTA HEAD AND NECK: Three-vessel morphology of the thoracic aortic arch with minimal atherosclero sis. Patency of the innominate and imaged subclavian arteries. The common carotid arteries are patent. There is mild atherosclerotic plaque the right carotid bulb. The middle and anterior cerebral arteries appear patent. Codominant and patent vertebral arteries. The basilar and posterior cerebral ar teries are patent. The cerebral venous sinuses are patent. No abnormal intracranial enhancement. Mild emphysema with bronchial wall thickening. Subtle tree-in-bud micronodules of the lung apices. Unremarkable thyroid. Mild tracheobronchial secretions. Mild mucosal thickening of the right maxillary sinus. Numerous dental caries and periapical cysts. Anterior plate and screw fusion with discectomy at C5-C6. Multilevel degenerative changes of the cervical and thoracic spine. IMPRESSION: 1. No acute intracranial abnormality. 2. Minimal atherosclerotic vascular disease with otherwise unremarkable CTA of the head and neck. 3. Mild emphysema with bronchial wall thickening suggestive of bronchitis. Subtle tree-in-bud opacities of the lung apices are suggestive of an infectious or inflammatory pneumonitis. ACT 112: Negative or not required by law. The above report was generated using voice recognition software. It may contain grammatical, syntax or spelling errors. Electronically signed by: Dimitri Mejias M.D. 05/24/2021 10:01 PM Chest X-Ray 05/24/21 22:51 XR chest 1V portable HISTORY: 41 years-old Male dizziness acute dizziness COMPARISON: CTA neck of same day, chest radiograph 04/06/2016. TECHNIQUE: Portable AP view the chest FINDINGS: Mild chronic interstitial coarsening. The cardiomediastinal and hilar silhouettes are within normal limits. No pneumothorax, pleural effusion, airspace consolidation or overt pulmonary edema. Cervical spinal fusion hardware. Bones appear grossly intact. IMPRESSION: No acute process. ACT 112: Negative or not required by law. The above report was generated using voice recognition software. It may contain grammatical, syntax or spelling errors. Electronically signed by: Dimitri Mejias M.D. 05/24/2021 11:07 PM MRI HEAD : Comparison: CT head earlier same day No evidence of acute infarct or intracranial hemorrhage. No mass effect or hydrocephalus. A few scattered T2/FLAIR white matter hyper intensities, nonspecific. Mild mucosal thickening of right maxillary sinus. Radiologist: Michele Esquivel MD Study ready at 00:29 and initial results transmitted at 00:58 MDM Narrative Patient was seen and evaluated as above in room C08 review was performed of nursing notes and vital signs. I did review pertinent previous visits and patient history. After obtaining a thorough history and physical examination the above work up was performed. Patient presents to us today for evaluation of diz ziness and exhaustion. Vital signs reveal hypertension, otherwise stable. He is nontoxic on examination. Options of care were discussed with the patient. IV access was established. Labs were drawn. Leukocytosis 13.34 without anemia. ESR elevated as well as CRP. Potassium and sodium are mildly decreased. No evidence of kidney or liver failure. Troponin normal. Urinalysis does not suggest infection. UDS, blood culture, anaplasmosis/Lyme testing pending. Covid negative. EKG ordered se condary to the dizziness. This reveals sinus rhythm with short [place] at a rate of [address] elevation. QTc 394. QRS 80. This was compared to rhythm tracing of April 06, 2016. No significant change was found. Patient while here was medicated with IV Valium that provided minimal relief for his symptoms. He was then medicated with meclizine and fluids. He persisted to have dizziness with standing. He is not hypotensive. Orthostatics do not reveal any hypotension. Patient underwent CTA of the head and neck that was essentially negative from an emergent standpoint. MRI of the brain then ordered. This was also essentially negative from an emergent standpoint. Patient is due at the present time for his nighttime medications which include antihypertensives. I then ordered him clonidine, lisinopril as well as his gabapentin dose. These are the medications the patient normally takes at this time. With the patient having persistence of symptoms I do believe that further evaluation and management inpatient setting is warranted. Case discussed with the hospitalist. Please refer to further documentation regarding his stay. Case was discussed with the attending physician. An order was placed for continuous cardiac monitoring. The monitor shows a rate of 83 with sinus rhythm. GCS: 15 In the evaluation and treatment of this patient the following differential diagnoses were entertained: Meningitis, encephalitis, hypotension, electrolyte disturbance, cardiac etiology, CVA, TIA, malignancy, tumor, intracranial bleed, infectious process, among others. Impression & Plan Dizziness, Hyponatremia, Hypokalemia Discharge Plan Visit Data Chief Complaint: Dizziness Stated Complaint: DIZZINESS,LIGHTHEADED,EXHAUSTED ED Provider: Graeme Simpson ED Midlevel Provider: Darryn Lugo Discharge Problem: Dizziness, Hyponatremia, Hypokalemia Patient Disposition: Admitted As Inpatient Condition: Good Forms Stand Alone Forms: [facility] Prescriptions Prescriptions: No Action citalopram [Celexa] 20 mg tablet 20 mg PO DAILY Qty: 90 RF: 3 mometasone-formoterol 100-5 mcg/actuation HFA aerosol inhaler 2 puff inhalation BID PRN (Reason: wheezing, shortness of breath) Qty: 8.8 RF: 3 buprenorphine HCl 8 mg tablet, sublingual 8 mg sublingual BID RF: 0 ibuprofen 800 mg tablet 800 mg PO TID PRN (Reason: Pain) Qty: 90 RF: 3 gabapentin 800 mg tablet 800 mg PO TID Qty: 90 RF: 3 cyclobenzaprine 10 mg tablet 10 mg PO TID PRN (Reason: Muscle Spasticity) Qty: 90 RF: 3 clonidine HCl 0.1 mg tablet 0.1 mg PO BID Qty: 60 RF: 3 cholecalciferol (vitamin D3) 50 mcg (2,000 unit) capsule 50 mcg PO DAILY Qty: 90 RF: 3 folic acid 1 mg tablet 1 mg PO DAILY Qty: 90 RF: 3 lisinopril 20 mg tablet 20 mg PO DAILY Qty: 90 RF: 3 diclofenac sodium [Voltaren] 1 % Gel 2 g TOPICAL QID PRN (Reason: Pain) RF: 0 buspirone 5 mg tablet 5 mg PO TID PRN (Reason: Anxiety) RF: 0 Referrals Referrals: Karishma Jimenez MD [Primary Care Provider] -
[2021-05-24 20:17] LABS: Basophils # (auto) 0.04 K/uL (0-0.2); Basophils % (auto) 0.3 %; Hematocrit (blood only) 47.6 % (42-52); Hemoglobin 17.2 g/dL (14.0-18.0); Immature Granulocytes # (auto) 0.01 K/uL (0.00-0.02); Immature Granulocytes % (auto) 0.1 %; Lymphocytes # (auto) 3.47 K/uL (1.2-3.4); Mean Corpuscular Hemoglobin 31.1 pg (25-34); Mean Corpuscular Hgb Conc 36.1 g/dL (32-36); Mean Corpuscular Volume 86.1 fL (80-100); Mean Platelet Volume 9.1 fL (7.4-10.4); Monocytes # (auto) 1.03 K/uL (0.11-0.59); Monocytes % (auto) 7.7 %; Neutrophils # (auto) 8.79 K/uL (1.4-6.5); Neutrophils % (auto) 65.9 %; Platelet Count 246 K/uL (130-400); RDW Coefficient of Variation 13.2 % (11.5-14.5); RDW Standard Deviation 41.8 fL (36.4-46.3); Red Blood Count 5.53 M/uL (4.7-6.1); White Blood Count 13.34 K/uL (4.8-10.8)
[2021-05-24 20:27] LABS: Partial Thromboplastin Time 28.8 Seconds (21.0-31.0); Prothrombin Time 10.9 Seconds (9.0-12.0)
[2021-05-24 20:36] LABS: Troponin I < 0.03 ng/ml (0-0.04)
[2021-05-24 20:41] LABS: Alanine Aminotransferase 19 U/L (7-52); Albumin Globulin Ratio 1.5 (0.9-2); Albumin Level 4.3 gm/dl (3.4-5.0); Alkaline Phosphatase 102 U/L (34-104); Anion Gap 7 (3-11); Aspartate Aminotransferase 19 U/L (13-39); Bilirubin,Total 0.5 mg/dl (0.2-1.0); Blood Urea Nitrogen 8 mg/dl (6-23); Calcium 9.2 mg/dl (8.5-10.1); Carbon Dioxide 27 mmol/L (21-32); Chloride 101 mmol/L (98-107); Est GFR (African American) 127.7 ml/min; Est GFR (Non-African American) 110.2 ml/min; Globulin 2.9 gm/dl (2.5-4.0); Glucose 119 mg/dl (70-99(Fasting)); Potassium 3.4 mmol/L (3.5-5.1); Sodium 135 mmol/L (136-145); Total Protein 7.2 gm/dl (6.0-8.3)
[2021-05-24 21:13] LABS: Appearance Urine Clear (Clear); Bilirubin Urine Negative (Negative); Blood Urine Negative (Negative); Color Urine Yellow; Glucose Urine UA Negative (Negative); Ketones Urine Negative (Negative); Leukocyte Esterase Urine Negative (Negative); Nitrite Urine Negative (Negative); Protein Urine Negative (Negative); Specific Gravity Urine 1.005 (1.000-1.030); Urobilinogen Urine Negative (Negative); pH Urine 6.5 (4.5-7.5)
[2021-05-24] MEDS ORDERED: OPTIRAY 320 125ml IV ONE (21:14)
--- NOTE | 2021-05-24 22:03 | CT Scan Report ---
CT angio neck with con, CT angio head wo/w CLINICAL HISTORY: 41 years-old Male with dizziness. Acute dizziness COMPARISON STUDY: CT cervical spine 07/02/2019 TECHNIQUE: Following the IV administration of 120 mL of Optiray, CT angiogram of the head and neck wa s performed from the aortic arch to the skull base. A noncontrast head CT was also obtained. Images a re reviewed in the axial, sagittal, and coronal planes. 3-D MIPS images are created and assessed. IV contrast was administered without complication. All measurements were calculated based on NASCET crit eria. A dose lowering technique was utilized adhering to the principles of ALARA. CT DOSE: 1308.40 mGy.cm FINDINGS: CT HEAD: No acute intracranial hemorrhage, midline shift, abnormal extra axial collection, hydrocephalus, acut e territorial infarct or intracranial mass. No acute calvarial fracture. The mastoid air cells and pa ranasal sinuses are generally clear aside from mild right maxillary sinus mucosal thickening. Orbits and soft tissues are unremarkable. CTA HEAD AND NECK: Three-vessel morphology of the thoracic aortic arch with minimal atherosclerosis. Patency of the inno minate and imaged subclavian arteries. The common carotid arteries are patent. There is mild atherosc lerotic plaque the right carotid bulb. The middle and anterior cerebral arteries appear patent. Codom inant and patent vertebral arteries. The basilar and posterior cerebral arteries are patent. The cere bral venous sinuses are patent. No abnormal intracranial enhancement. Mild emphysema with bronchial wall thickening. Subtle tree-in-bud micronodules of the lung apices. Un remarkable thyroid. Mild tracheobronchial secretions. Mild mucosal thickening of the right maxillary sinus. Numerous dental caries and periapical cysts. Anterior plate and screw fusion with discectomy a t C5-C6. Multilevel degenerative changes of the cervical and thoracic spine. IMPRESSION: 1. No acute intracranial abnormality. 2. Minimal atherosclerotic vascular disease with otherwise unremarkable CTA of the head and neck. 3. Mild emphysema with bronchial wall thickening suggestive of bronchitis. Subtle tree-in-bud opaciti es of the lung apices are suggestive of an infectious or inflammatory pneumonitis. ACT 112: Negative or not required by law. The above report was generated using voice recognition software. It may contain grammatical, syntax o r spelling errors. Electronically signed by: Dimitri Mejias M.D. 05/24/2021 10:01 PM
[2021-05-24] MEDS ORDERED: MECLIZINE HCL 25 MG TAB PO STA (22:51)
[2021-05-24] MEDS ORDERED: SODIUM CHLORIDE 0.9% 1000ML 1,000 ML IV SCH (23:00)
--- NOTE | 2021-05-24 23:09 | XRay Report ---
XR chest 1V portable HISTORY: 41 years-old Male dizziness acute dizziness COMPARISON: CTA neck of same day, chest radiograph 04/06/2016. TECHNIQUE: Portable AP view the chest FINDINGS: Mild chronic interstitial coarsening. The cardiomediastinal and hilar silhouettes are within normal l imits. No pneumothorax, pleural effusion, airspace consolidation or overt pulmonary edema. Cervical s [place] fusion hardware. Bones appear grossly intact. IMPRESSION: No acute process. ACT 112: Negative or not required by law. The above report was generated using voice recognition software. It may contain grammatical, syntax o r spelling errors. Electronically signed by: Dimitri Mejias M.D. 05/24/2021 11:07 PM
[2021-05-25] MEDS ORDERED: lisinopril 20 MG TAB PO STA (01:22)
[2021-05-25] MEDS ORDERED: cloNIDine HCL 0.1 MG TAB PO ONE (01:22)
[2021-05-25] MEDS ORDERED: GABAPENTIN 800 MG TAB PO STA (01:22)
[2021-05-25 01:56] LABS: Amphetamines+Metham, Urine Neg (Neg); Barbiturates, Urine Neg (Neg); Benzodiazepine, Urine Neg (Neg); Cocaine, Urine Neg (Neg); MDMA (Ecstacy), Urine Neg (Neg); Methadone, Urine Neg (Neg); Opiate, Urine Neg (Neg); Phencyclidine, Urine Neg (Neg)
[2021-05-25] MEDS ORDERED: ALUMINUM/MAGNESIUM SUSP 30 ML UDC PO PRN (02:02)
[2021-05-25] MEDS ORDERED: ALBUT/IPRATROP 3MG/0.5MG NEB 3 ML VIAL NEB PRN (02:02)
[2021-05-25] MEDS ORDERED: ACETAMINOPHEN 500 MG TAB PO PRN (02:02)
[2021-05-25] MEDS ORDERED: MECLIZINE HCL 25 MG TAB PO PRN (02:02)
--- NOTE | 2021-05-25 02:06 | History & Physical Report ---
Date of Service May 25, 2021 Assessment & Plan (1) Tobacco use disorder: Plan: Patient is a 41-year-old male with a past medical history of anxiety, chronic pain, hypertension and obstructive airway disease who presents for evaluation of dizziness admitted for observation and further evaluation. #Vertigo Recent onset, difficulty reading, worse when moving from a lying to an upright position with nystagmus on visual exam strongly suggestive of BPPV. However giv en his constellation of findings will be admitted for observation and further evaluation. -Negative head and neck CTA -Negative brain MRI -Physical exam correlates with BPPV -No meningeal symptoms - meclizine, physical therapy -Morning BMP #Acute bronchitis Long smoking history, cough while in the room with the patient.given recent history of increasing shortness of breath, elevated white count laboratory, imaging findings suggestive of bronchitis we will treat. -Z-Kody -Twice daily budesonide -Continue home inhalers -As needed DuoNebs -Incentive spirometry and flutter valve #Generalized anxiety disorder with panic attacks -Continue home buspirone -Continue home citalopram #Chronic pain No longer takes Flexeril -Continue buprenorphine -Continue gabapentin -Voltaren as needed #Hypertension -Continue clonidine 0.1 mg p.o. twice daily -Continue lisinopril #Tobacco use Nicotine patch ordered FENa: Regular Code Status: Full code DVT PPX: Lovenox PT/OT: Not indicated Case Management: Not indicated Dispo: Miltonrronaldo Ontiveros MD PGY 3, FCM This chart was completed utilizing [facility] voice recognition software. Grammatical errors, random word insertions, pronoun errors, and in complete sentences are an occasional consequence of the system. Any questions or concerns about the content, text, or information contained within the body of this dictation should be addressed directly to the physician for clarification. (2) Primary hypertension: (3) Generalized anxiety disorder with panic attacks: (4) Acute bronchitis: (5) Vertigo: (6) Asthma: History of Present Illness Primary Care Provider: Karishma Jimenez MD Patient is a 41-year-old male with a past medical history of anxiety, chronic pain, hypertension and obstructive airway disease who presents for evaluation of dizziness admitted for observation and further evaluation. Patient has been in his usual state of health and over the past week or so has noticed increasing dizziness. Initially the dizziness would only occur when he rises from lying to upright however the dizziness has since become worse. Initially it would last for only a few seconds and go away but it has since become persistent. Today it was so severe that he was barely able to walk or ambulate. He states that the dizziness has been so troublesome he has not been able to focus on reading. He notes a cough and generalized malaise but denies any overt fevers or chills, na usea or vomiting, chest pressure chest pain, shortness of breath. Given the severity of his symptoms to present to the emergency department. In the emergency department routine labs were obtained CBC was notable for a white count of 13.3 with a neutrophil predominance, coagulation studies were normal, chemistries demonstrated a potassium of 3.4, glucose of 119, liver function studies were within normal limits, lactate was negative, CRP was 1.86, pro-Kumar negative, urine was negative, tox screen is pending, tick serologies are pending as well. chest x-ray was obtained which was negative for acute process brain MRI was negative, head CTA was negative, neck CTA demonstrated minimal atherosclerotic vascular disease and mild emphysema with the bronchial wall thickening suggestive of bronchitis. Given the patient's constellation of findings and laboratory results hospital service was consulted for admission. Upon arrival to the patient's room he was sitting upright in bed and relate a story as described above he also noted some significant coughing recently. Patient states at present his dizziness is mostly controlled however he does have exacerbations when he sits up. He states recently has been tolerating his diet, voiding and stooling. All questions were answered no acute concerns Allergies Allergy/AdvReac Type Severity Reaction Status Date / Time Penicillins Allergy Unknown BREATHING Verified 05/24/21 20:23 DIFFICULTIES, BUT CAN TAKE AMOXICILLIN Home Medications Medication Instructions Recorded Confirmed Type cyclobenzaprine 10 mg tablet 10 mg PO TID PRN #90 tab 06/03/20 05/24/21 Rx gabapentin 800 mg tablet 800 mg PO TID #90 tab 06/03/20 05/24/21 Rx ibuprofen 800 mg tablet 800 mg PO TID PRN #90 tab 06/03/20 05/24/21 Rx clonidine HCl 0.1 mg tablet 0.1 mg PO BID #60 tab 06/17/20 05/24/21 Rx buprenorphine HCl 8 mg sublingual 8 mg SUBLINGUAL BID tab 12/12/20 05/24/21 History tablet citalopram 20 mg tablet (Celexa) 20 mg PO DAILY #90 tab 12/23/20 05/24/21 Rx mometasone-formoterol HFA 100 2 puff INHALATION BID PRN #8.8 g 12/23/20 05/24/21 Rx mcg-5 mcg/actuation aerosol inhaler cholecalciferol (vitamin D3) 50 50 mcg PO DAILY #90 cap 04/14/21 05/24/21 Rx mcg (2,000 unit) capsule folic acid 1 mg tablet 1 mg PO DAILY #90 tab 04/14/21 05/24/21 Rx lisinopril 20 mg tablet 20 mg PO DAILY #90 tab 04/14/21 05/24/21 Rx buspirone 5 mg tablet 5 mg PO TID PRN 05/24/21 05/24/21 History diclofenac sodium 1 % topical gel 2 g TOPICAL QID PRN 05/24/21 05/24/21 History meclizine 25 mg tablet 25 mg PO Q6H PRN #20 tab 05/25/21 Rx prednisone 10 mg tablet See Rx Instructions .ROUTE 05/25/21 Rx .COMPLEX #36 tab Past Med/Surg History Medical History Generalized anxiety disorder with panic attacks Major depression, recurrent Tobacco use disorder Vitamin D deficiency Surgical History History of neck surgery S/P cervical spinal fusion S/P right knee arthroscopy "2001" Family History Aunt Colorectal cancer Father Myocardial infarction Stroke Denies family history of Ovarian cancer Prostate cancer Breast cancer Social History Smoking Status: Current every day smoker Years Smoked: 30; Cigarettes Per Day: 1 pack per day; Second Hand Exposure: Yes; Do You Dip or Chew Tobacco: No; Tobacco Cessation Education Requested by Patient: No Hx Alcohol Use: No Hx Substance Use: No Preferred Language: Syriac Communication Ability: Effective Application Assistant Required: No Beliefs That Will Affect Care: None marital status: Current Living Situation: Spouse and Family current occupational status: employed How many Children do You have: 2 Other Information That Helps Us Care for You: No Feels Safe at Home: Yes Safety Concerns: Feels Safe At This Time Childhood Exposure to Second-Hand Smoke: Yes Dental Care, Regularly: No Physical Activity Frequency: 3-4 Times per Week Seatbelt Use: always Sunscreen Use: No Assistive Devices: Glasses Review of Systems Review of Systems: as above Physical Exam Physical Exam: General: No acute distress HEENT: Normocephalic atraumatic Neck: No significant lymphadenopathy, trachea midline, normal to visual inspection Cardiac: Regular rate and rhythm, normal S1, normal S2, I did not appreciated any significant murmurs rubs or gallops, I did not appreciate any significant pedal edema, No calf tenderness, capillary refill is less than 3 seconds Respiratory: Diffuse wheezing and rhonchi throughout the bilateral upper respiratory underwood, some improvement with coughing, no increased work of br eathing GI: Normal bowel sounds, soft, nontender in all 4 quadrants, nondistended MSK: No sensory or motor changes, moves all extremities without issue, extremities are warm and well-perfused Skin: [place], clean, dry, intact. Neuro: Alert and oriented x4, nystagmus when rising from a lying to a upright position Psych: Calm, cooperative, logical thought process Results & Data Results & Data ([facility]) Vital Signs (Past 12 Hours) Vital Signs Temp Pulse Pulse Resp BP BP Pulse Ox 05/25/21 01:15 83 18 172/113 H 96 05/24/21 22:00 65 16 145/100 H 98 05/24/21 20:10 86 83 18 177/106 H 98 05/24/21 19:38 37.3 C 97 H 16 200/114 H 97 Laboratory Results 05/25/21 05/25/21 05/24/21 Range/Units 01:08 01:08 20:32 WBC (4.8-10.8) K/uL RBC (4.7-6.1) M/uL Hgb (14.0-18.0) g/dL Hct (42-52) % MCV (80-100) fL MCH (25-34) pg MCHC (32-36) g/dL RDW Std Deviation (36.4-46.3) fL RDW Coeff of Sabrina (11.5-14.5) % Plt Count (130-400) K/uL MPV (7.4-10.4) fL Immature Gran % (Auto) % Neut % (Auto) % Lymph % (Auto) % Kay % (Auto) % Eos % (Auto) % Baso % (Auto) % Neut # (Auto) (1.4-6.5) K/uL Lymph # (Auto) (1.2-3.4) K/uL Kay # (Auto) (0.11-0.59) K/uL Eos # (Auto) (0-0.5) K/uL Baso # (Auto) (0-0.2) K/uL Immature Gran # (Auto) (0.00-0.02) K/uL ESR (0-15) mm/hr PT (9.0-12.0) Seconds INR (0.9-1.1) APTT (21.0-31.0) Seconds PTT Ratio Sodium (136-145) mmol/L Potassium (3.5-5.1) mmol/L Chloride (98-107) mmol/L Carbon Dioxide (21-32) mmol/L Anion Gap (3-11) BUN (6-23) mg/dl Creatinine (0.6-1.4) mg/dl Est Cr Clr Drug Dosing Est GFR ( Amer) ml/min Est GFR (Non-Af Amer) ml/min BUN/Creatinine Ratio (10-20) Glucose (70-99(Fasting)) mg/dl Lactate 0.4 (0.4-2.0) mmol/L Calcium (8.5-10.1) mg/dl Total Bilirubin (0.2-1.0) mg/dl AST (13-39) U/L ALT (7-52) U/L Alkaline Phosphatase (34-104) U/L Troponin I (0-0.04) ng/ml C-Reactive Protein (0-0.5) mg/dl Total Protein (6.0-8.3) gm/dl Albumin (3.4-5.0) gm/dl Globulin (2.5-4.0) gm/dl Albumin/Globulin Ratio (0.9-2) Procalcitonin Urine Color Urine Appearance (Clear) Urine pH (4.5-7.5) Ur Specific [place] (1.000-1.030) Urine Protein (Negative) Urine Glucose (UA) (Negative) Urine Ketones (Negative) Urine Blood (Negative) Urine Nitrite (Negative) Urine Bilirubin (Negative) Urine Urobilinogen (Negative) Ur Leukocyte Esterase (Negative) Urine Opiates Screen Pending Ur Methadone, Qual Pending Urine Barbiturates Pending Ur Phencyclidine (PCP) Pending U Amphetamin/Meth Scrn Pending MDMA (Ecstasy) Screen Pending U Benzodiazepines Scrn Pending Ur Cocaine Metabolite Pending U Marijuana (THC) Screen Pending Anaplasma Smear A. phagocytophilum DNA Lyme Disease IgG Ab Pending Lyme Disease IgM Ab Pending SARS-CoV-2, RNA, NAAT (NEGATIVE) 05/24/21 05/24/21 05/24/21 Range/Units 20:32 20:31 20:00 WBC (4.8-10.8) K/uL RBC (4.7-6.1) M/uL Hgb (14.0-18.0) g/dL Hct (42-52) % MCV (80-100) fL MCH (25-34) pg MCHC (32-36) g/dL RDW Std Deviation (36.4-46.3) fL RDW Coeff of Sabrina (11.5-14.5) % Plt Count (130-400) K/uL MPV (7.4-10.4) fL Immature Gran % (Auto) % Neut % (Auto) % Lymph % (Auto) % Kay % (Auto) % Eos % (Auto) % Baso % (Auto) % Neut # (Auto) (1.4-6.5) K/uL Lymph # (Auto) (1.2-3.4) K/uL Kay # (Auto) (0.11-0.59) K/uL Eos # (Auto) (0-0.5) K/uL Baso # (Auto) (0-0.2) K/uL Immature Gran # (Auto) (0.00-0.02) K/uL ESR (0-15) mm/hr PT (9.0-12.0) Seconds INR (0.9-1.1) APTT (21.0-31.0) Seconds PTT Ratio Sodium (136-145) mmol/L Potassium (3.5-5.1) mmol/L Chloride (98-107) mmol/L Carbon Dioxide (21-32) mmol/L Anion Gap (3-11) BUN (6-23) mg/dl Creatinine (0.6-1.4) mg/dl Est Cr Clr Drug Dosing Est GFR ( Amer) ml/min Est GFR (Non-Af Amer) ml/min BUN/Creatinine Ratio (10-20) Glucose (70-99(Fasting)) mg/dl Lactate (0.4-2.0) mmol/L Calcium (8.5-10.1) mg/dl Total Bilirubin (0.2-1.0) mg/dl AST (13-39) U/L ALT (7-52) U/L Alkaline Phosphatase (34-104) U/L Troponin I (0-0.04) ng/ml C-Reactive Protein (0-0.5) mg/dl Total Protein (6.0-8.3) gm/dl Albumin (3.4-5.0) gm/dl Globulin (2.5-4.0) gm/dl Albumin/Globulin Ratio (0.9-2) Procalcitonin Urine Color Yellow Urine Appearance Clear (Clear) Urine pH 6.5 (4.5-7.5) Ur Specific [place] 1.005 (1.000-1.030) Urine Protein Negative (Negative) Urine Glucose (UA) Negative (Negative) Urine Ketones Negative (Negative) Urine Blood Negative (Negative) Urine Nitrite Negative (Negative) Urine Bilirubin Negative (Negative) Urine Urobilinogen Negative (Negative) Ur Leukocyte Esterase Negative (Negative) Urine Opiates Screen Ur Methadone, Qual Urine Barbiturates Ur Phencyclidine (PCP) U Amphetamin/Meth Scrn MDMA (Ecstasy) Screen U Benzodiazepines Scrn Ur Cocaine Metabolite U Marijuana (THC) Screen Anaplasma Smear A. phagocytophilum DNA Pending Lyme Disease IgG Ab Lyme Disease IgM Ab SARS-CoV-2, RNA, NAAT NEGATIVE (NEGATIVE) 05/24/21 05/24/21 05/24/21 Range/Units 20:00 20:00 20:00 WBC (4.8-10.8) K/uL RBC (4.7-6.1) M/uL Hgb (14.0-18.0) g/dL Hct (42-52) % MCV (80-100) fL MCH (25-34) pg MCHC (32-36) g/dL RDW Std Deviation (36.4-46.3) fL RDW Coeff of Sabrina (11.5-14.5) % Plt Count (130-400) K/uL MPV (7.4-10.4) fL Immature Gran % (Auto) % Neut % (Auto) % Lymph % (Auto) % Kay % (Auto) % Eos % (Auto) % Baso % (Auto) % Neut # (Auto) (1.4-6.5) K/uL Lymph # (Auto) (1.2-3.4) K/uL Kay # (Auto) (0.11-0.59) K/uL Eos # (Auto) (0-0.5) K/uL Baso # (Auto) (0-0.2) K/uL Immature Gran # (Auto) (0.00-0.02) K/uL ESR (0-15) mm/hr PT (9.0-12.0) Seconds INR (0.9-1.1) APTT (21.0-31.0) Seconds PTT Ratio Sodium (136-145) mmol/L Potassium (3.5-5.1) mmol/L Chloride (98-107) mmol/L Carbon Dioxide (21-32) mmol/L Anion Gap (3-11) BUN (6-23) mg/dl Creatinine (0.6-1.4) mg/dl Est Cr Clr Drug Dosing Est GFR ( Amer) ml/min Est GFR (Non-Af Amer) ml/min BUN/Creatinine Ratio (10-20) Glucose (70-99(Fasting)) mg/dl Lactate (0.4-2.0) mmol/L Calcium (8.5-10.1) mg/dl Total Bilirubin (0.2-1.0) mg/dl AST (13-39) U/L ALT (7-52) U/L Alkaline Phosphatase (34-104) U/L Troponin I (0-0.04) ng/ml C-Reactive Protein 1.86 H (0-0.5) mg/dl Total Protein (6.0-8.3) gm/dl Albumin (3.4-5.0) gm/dl Globulin (2.5-4.0) gm/dl Albumin/Globulin Ratio (0.9-2) Procalcitonin Pending Urine Color Urine Appearance (Clear) Urine pH (4.5-7.5) Ur Specific [place] (1.000-1.030) Urine Protein (Negative) Urine Glucose (UA) (Negative) Urine Ketones (Negative) Urine Blood (Negative) Urine Nitrite (Negative) Urine Bilirubin (Negative) Urine Urobilinogen (Negative) Ur Leukocyte Esterase (Negative) Urine Opiates Screen Ur Methadone, Qual Urine Barbiturates Ur Phencyclidine (PCP) U Amphetamin/Meth Scrn MDMA (Ecstasy) Screen U Benzodiazepines Scrn Ur Cocaine Metabolite U Marijuana (THC) Screen Anaplasma Smear Pending A. phagocytophilum DNA Lyme Disease IgG Ab Lyme Disease IgM Ab SARS-CoV-2, RNA, NAAT (NEGATIVE) 05/24/21 05/24/21 05/24/21 Range/Units 20:00 20:00 20:00 WBC (4.8-10.8) K/uL RBC (4.7-6.1) M/uL Hgb (14.0-18.0) g/dL Hct (42-52) % MCV (80-100) fL MCH (25-34) pg MCHC (32-36) g/dL RDW Std Deviation (36.4-46.3) fL RDW Coeff of Sabrina (11.5-14.5) % Plt Count (130-400) K/uL MPV (7.4-10.4) fL Immature Gran % (Auto) % Neut % (Auto) % Lymph % (Auto) % Kay % (Auto) % Eos % (Auto) % Baso % (Auto) % Neut # (Auto) (1.4-6.5) K/uL Lymph # (Auto) (1.2-3.4) K/uL Kay # (Auto) (0.11-0.59) K/uL Eos # (Auto) (0-0.5) K/uL Baso # (Auto) (0-0.2) K/uL Immature Gran # (Auto) (0.00-0.02) K/uL ESR 23 H (0-15) mm/hr PT 10.9 (9.0-12.0) Seconds INR 1.0 (0.9-1.1) APTT 28.8 (21.0-31.0) Seconds PTT Ratio 1.0 Sodium 135 L (136-145) mmol/L Potassium 3.4 L (3.5-5.1) mmol/L Chloride 101 (98-107) mmol/L Carbon Dioxide 27 (21-32) mmol/L Anion Gap 7 (3-11) BUN 8 (6-23) mg/dl Creatinine 0.80 (0.6-1.4) mg/dl Est Cr Clr Drug Dosing Not Reportable Est GFR ( Amer) 127.7 ml/min Est GFR (Non-Af Amer) 110.2 ml/min BUN/Creatinine Ratio 10.0 (10-20) Glucose 119 H (70-99(Fasting)) mg/dl Lactate (0.4-2.0) mmol/L Calcium 9.2 (8.5-10.1) mg/dl Total Bilirubin 0.5 (0.2-1.0) mg/dl AST 19 (13-39) U/L ALT 19 (7-52) U/L Alkaline Phosphatase 102 (34-104) U/L Troponin I < 0.03 (0-0.04) ng/ml C-Reactive Protein (0-0.5) mg/dl Total Protein 7.2 (6.0-8.3) gm/dl Albumin 4.3 (3.4-5.0) gm/dl Globulin 2.9 (2.5-4.0) gm/dl Albumin/Globulin Ratio 1.5 (0.9-2) Procalcitonin Urine Color Urine Appearance (Clear) Urine pH (4.5-7.5) Ur Specific [place] (1.000-1.030) Urine Protein (Negative) Urine Glucose (UA) (Negative) Urine Ketones (Negative) Urine Blood (Negative) Urine Nitrite (Negative) Urine Bilirubin (Negative) Urine Urobilinogen (Negative) Ur Leukocyte Esterase (Negative) Urine Opiates Screen Ur Methadone, Qual Urine Barbiturates Ur Phencyclidine (PCP) U Amphetamin/Meth Scrn MDMA (Ecstasy) Screen U Benzodiazepines Scrn Ur Cocaine Metabolite U Marijuana (THC) Screen Anaplasma Smear A. phagocytophilum DNA Lyme Disease IgG Ab Lyme Disease IgM Ab SARS-CoV-2, RNA, NAAT (NEGATIVE) 05/24/21 Range/Units 20:00 WBC 13.34 H (4.8-10.8) K/uL RBC 5.53 (4.7-6.1) M/uL Hgb 17.2 (14.0-18.0) g/dL Hct 47.6 (42-52) % MCV 86.1 (80-100) fL MCH 31.1 (25-34) pg MCHC 36.1 H (32-36) g/dL RDW Std Deviation 41.8 (36.4-46.3) fL RDW Coeff of Sabrina 13.2 (11.5-14.5) % Plt Count 246 (130-400) K/uL MPV 9.1 (7.4-10.4) fL Immature Gran % (Auto) 0.1 % Neut % (Auto) 65.9 % Lymph % (Auto) 26.0 % Kay % (Auto) 7.7 % Eos % (Auto) 0.0 % Baso % (Auto) 0.3 % Neut # (Auto) 8.79 H (1.4-6.5) K/uL Lymph # (Auto) 3.47 H (1.2-3.4) K/uL Kay # (Auto) 1.03 H (0.11-0.59) K/uL Eos # (Auto) 0.00 (0-0.5) K/uL Baso # (Auto) 0.04 (0-0.2) K/uL Immature Gran # (Auto) 0.01 (0.00-0.02) K/uL ESR (0-15) mm/hr PT (9.0-12.0) Seconds INR (0.9-1.1) APTT (21.0-31.0) Seconds PTT Ratio Sodium (136-145) mmol/L Potassium (3.5-5.1) mmol/L Chloride (98-107) mmol/L Carbon Dioxide (21-32) mmol/L Anion Gap (3-11) BUN (6-23) mg/dl Creatinine (0.6-1.4) mg/dl Est Cr Clr Drug Dosing Est GFR ( Amer) ml/min Est GFR (Non-Af Amer) ml/min BUN/Creatinine Ratio (10-20) Glucose (70-99(Fasting)) mg/dl Lactate (0.4-2.0) mmol/L Calcium (8.5-10.1) mg/dl Total Bilirubin (0.2-1.0) mg/dl AST (13-39) U/L ALT (7-52) U/L Alkaline Phosphatase (34-104) U/L Troponin I (0-0.04) ng/ml C-Reactive Protein (0-0.5) mg/dl Total Protein (6.0-8.3) gm/dl Albumin (3.4-5.0) gm/dl Globulin (2.5-4.0) gm/dl Albumin/Globulin Ratio (0.9-2) Procalcitonin Urine Color Urine Appearance (Clear) Urine pH (4.5-7.5) Ur Specific [place] (1.000-1.030) Urine Protein (Negative) Urine Glucose (UA) (Negative) Urine Ketones (Negative) Urine Blood (Negative) Urine Nitrite (Negative) Urine Bilirubin (Negative) Urine Urobilinogen (Negative) Ur Leukocyte Esterase (Negative) Urine Opiates Screen Ur Methadone, Qual Urine Barbiturates Ur Phencyclidine (PCP) U Amphetamin/Meth Scrn MDMA (Ecstasy) Screen U Benzodiazepines Scrn Ur Cocaine Metabolite U Marijuana (THC) Screen Anaplasma Smear A. phagocytophilum DNA Lyme Disease IgG Ab Lyme Disease IgM Ab SARS-CoV-2, RNA, NAAT (NEGATIVE) Code Status & VTE Plan Code Status full Supervising Physician Co-Signing Physician Notes Attending addendum: I have physically seen this patient, have supervised the medical residents activities, and agree with the H&P unless as otherwise noted. Assessment and Plan: Acute bronchitis- Pulmicort Respules 0.5 mg inhaled twice daily Duonebs every 4 hours while awake and every 2 hours when necessary. Azithromycin Z-Kody Continue usual home inhalers Vertigo-negative imaging as noted Treat symptomatically with meclizine Generalized anxiety disorder with panic attacks- Continue buspirone and citalopram Chronic pain syndrome- Continue buprenorphine, gabapentin and as needed Voltaren Remaining orders and notations as noted
[2021-05-25 02:26] LABS: Lyme Ab IgG w/WB Rflx Negative (Negative); Lyme Ab IgM w/WB Rflx Negative (Negative)
[2021-05-25] MEDS ORDERED: MOMETASONE FORMOTEROL INH PRN (02:49)
[2021-05-25] MEDS ORDERED: IBUPROFEN 800 MG TAB PO PRN (02:49)
[2021-05-25] MEDS ORDERED: DICLOFENAC SOD 1% GEL 100 GM TUBE EXT PRN (02:49)
[2021-05-25] MEDS ORDERED: busPIRone 5 MG TAB PO PRN (02:49)
[2021-05-25] MEDS ORDERED: [UNRECOGNIZED DRUG - OTHER] INH PRN (02:49)
[2021-05-25] MEDS ORDERED: AZITHROMYCIN 250 MG TAB PO ONE (03:00)
[2021-05-25] MEDS ORDERED: FLUTICASONE FUROATE 100MCG 14 PUFFS/INHALER INH SCH ×2 (03:45→09:00)
[2021-05-25 06:49] LABS: Basophils # (auto) 0.03 K/uL (0-0.2); Basophils % (auto) 0.4 %; Eosinophils # (auto) 0.32 K/uL (0-0.5); Eosinophils % (auto) 3.8 %; Hematocrit (blood only) 46.2 % (42-52); Hemoglobin 15.8 g/dL (14.0-18.0); Immature Granulocytes # (auto) 0.01 K/uL (0.00-0.02); Immature Granulocytes % (auto) 0.1 %; Lymphocytes # (auto) 3.75 K/uL (1.2-3.4); Lymphocytes % (auto) 44.2 %; Mean Corpuscular Hemoglobin 29.8 pg (25-34); Mean Corpuscular Hgb Conc 34.2 g/dL (32-36); Mean Platelet Volume 9.1 fL (7.4-10.4); Monocytes # (auto) 0.78 K/uL (0.11-0.59); Monocytes % (auto) 9.2 %; Neutrophils % (auto) 42.3 %; Platelet Count 239 K/uL (130-400); RDW Coefficient of Variation 13.3 % (11.5-14.5); RDW Standard Deviation 42.3 fL (36.4-46.3); Red Blood Count 5.31 M/uL (4.7-6.1); White Blood Count 8.49 K/uL (4.8-10.8)
[2021-05-25 07:20] LABS: BUN Creatinine Ratio 11.9 (10-20); Calcium 8.5 mg/dl (8.5-10.1); Creatinine Clr Calc Pharmacy 169.9 ml/min; Est GFR (African American) 137.4 ml/min; Est GFR (Non-African American) 118.5 ml/min; Potassium 3.5 mmol/L (3.5-5.1)
--- NOTE | 2021-05-25 07:25 | Magnetic Resonance Report ---
MRI OF THE BRAIN WITHOUT CONTRAST CLINICAL HISTORY: persistent dizziness COMPARISON STUDY: Head CT and CTA of the head May 24, 2021. TECHNIQUE: Utilizing a 1.5 Rebecca magnet and dedicated coil, multiplanar, multiecho imaging of the bra in was performed without IV contrast. FINDINGS: There are no foci of restricted diffusion to suggest acute infarct. No acute intracranial h emorrhage, midline shift or mass effect is present. Brain volume is normal. Ventricular system is nor mal. Basal cisterns are patent. Flow-voids for the major intracranial vessels are present. No intracr anial masses are identified on this unenhanced exam. There are several small white matter T2 hyperint ense foci. Orbits are unremarkable on this unenhanced exam. There is mild mucosal thickening of the r ight maxillary sinus. IMPRESSION: 1. No acute intracranial findings. 2. A few small white matter T2 hyperintense foci which could reflect sequela of migraine headaches or minimal small vessel disease. ACT 112: Negative or not required by law. Electronically signed by: Brad Falcon M.D. 05/25/2021 7:23 AM
[2021-05-25] MEDS: NICOTINE 14 MG/24 HR PATCH TD SCH (08:27)
[2021-05-25] MEDS: CHOLECALCIFEROL 1,000 UNITS 25 MCG TAB PO SCH (08:27)
[2021-05-25] MEDS: CITALOPRAM 20 MG TAB PO SCH (08:27)
[2021-05-25] MEDS: ENOXAPARIN INJ 40 MG/0.4 ML SYR SQ SCH (08:27)
[2021-05-25] MEDS: FOLIC ACID 1 MG TAB PO SCH (08:27)
[2021-05-25] MEDS: GABAPENTIN 800 MG TAB PO SCH ×3 (08:27→20:21)
[2021-05-25] MEDS: FLUTICASONE/VILANTEROL 200/25MCG 14 PUFFS/INHALER INH SCH (08:28)
[2021-05-25] MEDS: POLYETHYLENE (MIRALAX) 17 GM PACK PO SCH ×2 (08:28→20:18)
[2021-05-25] MEDS: cloNIDine HCL 0.1 MG TAB PO SCH ×2 (08:28→20:20)
[2021-05-25] MEDS ORDERED: buprenorphine HCL 8 MG SUBL SL SCH ×2 (09:00→19:00)
[2021-05-25] MEDS ORDERED: lisinopril 20 MG TAB PO SCH (09:00)
[2021-05-25] MEDS ORDERED: predniSONE 20 MG TAB PO ONE (09:45)
--- NOTE | 2021-05-25 10:07 | Electrocardiogram Report ---
Test Reason : Blood Pressure : / mmHG Vent. Rate : 079 BPM Atrial Rate : 079 BPM P-R Int : 106 ms QRS Dur : 080 ms QT Int : 344 ms P-R-T Axes : 061 022 038 degrees QTc Int : 394 ms Poor data quality, interpretation may be adversely affected Sinus rhythm with short ID Otherwise normal ECG When compared with ECG of 06-APR-2016 22:55, No significant change was found Confirmed by Sachin Jaramillo ([id number]) on 05/25/2021 10:07:37 AM Referred By: Karishma Jimenez Confirmed By:Sachin Jaramillo
--- NOTE | 2021-05-25 11:53 | Discharge Summary ---
Date of Service May 26, 2021 Admission HPI Per Admitting Provider Patient is a 41-year-old male with a past medical history of anxiety, chronic pain, hypertension and obstructive airway disease who presents for evaluation of dizziness admitted for observation and further evaluation. Patient has been in his usual state of health and over the past week or so has noticed increasing dizziness. Initially the dizziness would only occur when he rises from lying to upright however the dizziness has since become worse. Initially it would last for only a few seconds and go away but it has since become persistent. Today it was so severe that he was barely able to walk or ambulate. He states that the dizziness has been so troublesome he has not been able to focus on reading. He notes a cough and generalized malaise but denies any overt fevers or chills, nausea or vomiting, chest pressure chest pain, shortness of breath. Given the severity of his symptoms to present to the emergency department. In the emergency department routine labs were obtained CBC was notable for a white count of 13.3 with a neutrophil predominance, coagulation studies were normal, chemistries demonstrated a potassium of 3.4, glucose of 119, liver function studies were within normal limits, lactate was negative, CRP was 1.86, pro-Kumar negative, urine was negative, tox screen is pending, tick serologies are pending as well. chest x-ray was obtained which was negative for acute process brain MRI was negative, head CTA was negative, neck CTA demonstrated minimal atherosclerotic vascular disease and mild emphysema with the bronchial wall thickening suggestive of bronchitis. Given the patient's constellation of findings and laboratory results hospital service was consulted for admission. Upon arrival to the patient's room he was sitting upright in bed and relate a story as described above he also noted some significant coughing recently. Patient states at present his dizziness is mostly controlled however he does have exacerbations when he sits up. He states recently has been tolerating his diet, voiding and stooling. All questions were answered no acute concerns Principal Diagnosis Vertigo, suspect BPPV versus labyrinthitis Discharge Data Allergies Allergy/AdvReac Type Severity Reaction Status Date / Time Penicillins Allergy Unknown BREATHING Verified 05/24/21 20:23 DIFFICULTIES, BUT CAN TAKE AMOXICILLIN Consultations 05/25/21 00:43 ED Decision to Admit Stat Ordered Studies 05/24/21 19:55 CT angio head wo/w Stat CT angio neck with con Stat 05/24/21 22:28 MR brain wo con Stat Hospital Course (1) Tobacco use disorder: Patient is a 41-year-old male with a past medical history of anxiety, chronic pain, hypertension and obstructive airway disease who presents for evaluation of dizziness admitted for observation and further evaluation. Vertigo, ?BPPV vs labyrinthitis -Recent onset, difficulty reading, worse when moving from a lying to an upright position with nystagmus on visual exam strongly suggestive of BPPV. -Negative head and neck CTA -Negative brain MRI -Physical exam correlates with BPPV -No meningeal symptoms Symptoms minimally improved with meclizine Patient did receive Valium, as no he has had problems with sedation with benzodiazepines before especially with interaction with his buprenorphine. Hold further benzos at this time Continue meclizine -Morning BMP Patient does have an elevated CRP/ESR. No vascular abnormalities identified on CTA/MRI as noted above. TSH within normal limits. DAVID with reflex has been sent out. Lyme negative, anaplasmosis smear negative with DNA PCR pending. Did improve following Asif maneuver transiently (2) Primary hypertension: Hypertension - Hypotensive 4/3 with bradycardia? Iatrogenic from commendation of gabapentin, lisinopril, meclizine, Valium, clonidine, buprenorphine, buspirone - Pt with hx of sedation with benzos with prolonged clearance in the past Clonidine and lisinopril held Random cortisol normal Mild hypotension and slight bradycardia is new for patient. Will moved to telemetry and monitor EKG with slightly short [place], sinus bradycardia, no delta waves No chest pain, chest pressure, feeling of presyncope/syncope at bedside We will monitor and defer additional benzodiazepines Lisinopril held next morning with blood pressure improvement with hold parameters (3) Generalized anxiety disorder with panic attacks: #Generalized anxiety disorder with panic attacks -Continue home buspirone -Continue home citalopram (4) Acute bronchitis: #Acute bronchitis - Long smoking history, cough while in the room with the patient.given recent history of increasing shortness of breath, elevated white count laboratory, imaging findings suggestive of bronchitis was treated on admission Differential also includes URI with labyrinthitis Was treated initially with azithromycin on admission, given smoking history and bronchitis findings 5-day course of azithromycin was continued -Twice daily budesonide -Continue home inhalers -As needed DuoNebs -Incentive spirometry and flutter valve (5) Vertigo: (6) Asthma: (7) Chronic pain: Chronic back pain No longer takes Flexeril -Continue buprenorphine -Continue gabapentin -Voltaren as needed - Defer additional benzos as above Total Time Total Time Spent Total Time Spent (In Minutes): Time spend day of discharge 35 minutes including direct patient care, documentation, review of labs and images, and coordination of care. Discharge Plan Discharge Items Patient Disposition: Home - Self-Care Reason For Visit: VERTIGO Discharge Diagnosis: Vertigo, suspected BPPV versus labyrinthitis Condition on Discharge: Good Activity: Per Instructions section Non-emergency contact: Primary Care Provider Call non-emergency contact if: you have any medication questions, your symptoms worsen, your pain is not controlled, your pain is worsening and you have a fever Follow-up/Referrals: Karishma Jimenez MD [Primary Care Provider] - Diet: Regular Addtl Attending Provider Instructions: You are seen in the hospital for dizziness suspicious for vertigo. You had an MRI of the brain, and a CTA of the head and neck to look at the blood vessels which were both normal. There were no signs of vascular disease, stroke, masses/tumors. There was some evidence of a history of migraines/small vessel disease. You did have elevated inflammatory markers (CRP/ESR). Your Lyme test was negative, anaplasmosis smear was negative with final anaplasmosis DNA test pending. You did show some opacities on imaging of your lung consistent with bronchitis versus viral infection, a procalcitonin test was negative suggesting that this was not a bacterial infection. You were experiencing some cold- like/congestion symptoms. Your Covid test was negative. Your kidney function was normal. Your symptoms were easily reproduced with head turning/movement. Given your vertiginous symptoms, and upper respiratory symptoms it was suspected that your presentation was likely due to labyrinthitis (a condition or inflammation of the inner ear causes dizziness), or less likely BPPV (a condition where stones in the ear can cause dizziness). You are prescribed a steroid medication which can help with Vincent Cresencio Juanjo, and meclizine which can help with symptoms. Meclizine can be sedating. Do not operate machinery/drive while on this medication, or before your vertigo symptoms have improved. Close follow-up is being arranged with your primary care physician in the event that your symptoms do not improve or are not improving consistent with labyrinthitis/BPPV. A autoimmune lab (DAVID with reflex panel) has been sent due to your elevated inflammatory markers, results will not be available for several days but should be followed up on by your primary care physician. You have been prescribed a medication, prednisone. This medication is taken once daily with a gradually lowering dose. Please take prednisone daily 60 mg for 1 day, 50 mg for 2 days, 40 mg for 2 days, 30 mg for 2 days, 20 mg for 2 days, 10 mg for 2 days, then stop taking prednisone. Your lisinopril has temporarily been held, your blood pressure was improving at time of discharge. Please have a blood pressure check with your PCP and discuss this medication at your follow-up visit. Your clonidine has been continued, although if your blood pressure is less than 110/70 you may hold the dose of this medication. You have been prescribed a medication which can help treat the symptoms of vertigo, meclizine. Please take meclizine 12.5 mg as needed up to every 6 hours. This can be sedating and make you sleepy. A follow-up appointment is being made with your primary care provider as noted above. You should be seen within 1 week. If you do not receive a call within 48 hours to confirm this appointment please call our office at the number above If you develop any new or worsening symptoms including fever, chills, sweats, chest pain, chest pressure, difficulty breathing, uncontrolled nausea/vomiting, rash, wheezing, passing out or nearly passing out, bleeding, black/bloody bowel movements, or other new or concerning symptoms please call your primary care physician, or call 911 for re-evaluation in the emergency department if you are very concerned. Pending Studies at Discharge: Yes (DAVID w reflex, Anaplasmosis PCR) Stand-Alone Forms: [employer], Smoking Cessation Medications and DC Order Prescriptions: New meclizine 25 mg Tablet 25 mg PO Q6H PRN (Reason: vertigo) Qty: 20 RF: 0 prednisone 10 mg tablet See Rx Instructions .ROUTE .COMPLEX Qty: 36 RF: 0 Continued citalopram [Celexa] 20 mg tablet 20 mg PO DAILY Qty: 90 RF: 3 mometasone-formoterol 100-5 mcg/actuation HFA aerosol inhaler 2 puff inhalation BID PRN (Reason: wheezing, shortness of breath) Qty: 8.8 RF: 3 buprenorphine HCl 8 mg tablet, sublingual 8 mg sublingual BID RF: 0 ibuprofen 800 mg tablet 800 mg PO TID PRN (Reason: Pain) Qty: 90 RF: 3 gabapentin 800 mg tablet 800 mg PO TID Qty: 90 RF: 3 cyclobenzaprine 10 mg tablet 10 mg PO TID PRN (Reason: Muscle Spasticity) Qty: 90 RF: 3 clonidine HCl 0.1 mg tablet 0.1 mg PO BID Qty: 60 RF: 3 cholecalciferol (vitamin D3) 50 mcg (2,000 unit) capsule 50 mcg PO DAILY Qty: 90 RF: 3 folic acid 1 mg tablet 1 mg PO DAILY Qty: 90 RF: 3 diclofenac sodium [Voltaren] 1 % Gel 2 g TOPICAL QID PRN (Reason: Pain) RF: 0 buspirone 5 mg tablet 5 mg PO TID PRN (Reason: Anxiety) RF: 0 Discontinued lisinopril 20 mg tablet 20 mg PO DAILY Qty: 90 RF: 3 Discharge Orders: Discharge Order (Routine); Ordered 05/26/21 Ordered By: Raphael Forrest Admission Data Admit Date/Time: 05/25/21 02:07 Attending Provider: Raphael Forrest Admit Provider: Bryon Ontiveros I. Primary Care Provider: Karishma Jimenez Other Providers: Nelson Olmedo Coding Level of Care Code D/C DAY MANAGEMENT >30 MINS Diagnoses Tobacco use disorder F17.200 Primary hypertension I10 Generalized anxiety disorder with panic attacks F41.1; F41.0 Acute bronchitis J20.9 Vertigo R42 Asthma J45.909 Chronic pain G89.29
--- NOTE | 2021-05-25 13:40 | Hospitalist Progress Note ---
Date of Service May 25, 2021 Assessment & Plan (1) Tobacco use disorder: Plan: Patient is a 41-year-old male with a past medical history of anxiety, chronic pain, hypertension and obstructive airway disease who presents for evaluation of dizziness admitted for observation and further evaluation. Vertigo, ?BPPV vs labyrinthitis -Recent onset, difficulty reading, worse when moving from a lying to an upright position with nystagmus on visual exam strongly suggestive of BPPV. -Negative head and neck CTA -Negative brain MRI -Physical exam correlates with BPPV -No meningeal symptoms Symptoms minimally improved with meclizine Patient did receive Valium, as no he has had problems with sedation with benzodiazepines before especially with interaction with his buprenorphine. Hold further benzos at this time Hypotension as below, further monitoring Continue meclizine -Morning BMP Patient does have an elevated CRP/ESR. No vascular abnormalities identified on CTA/MRI as noted above. TSH within normal limits. DAVID with reflex has been sent out. Lyme negative, anaplasmosis smear negative with DNA PCR pending. (2) Primary hypertension: Plan: Hypertension - Hypotensive 4/3 with bradycardia? Iatrogenic from commendation of gabapentin, lisinopril, meclizine, Valium, clonidine, buprenorphine, buspirone - Pt with hx of sedation with benzos with prolonged clearance in the past Clonidine and lisinopril held Random cortisol normal Mild hypotension and slight bradycardia is new for patient. Will moved to telemetry and monitor EKG with slightly short [place], sinus bradycardia, no delta waves No chest pain, chest pressure, feeling of presyncope/syncope at bedside We will monitor and defer additional benzodiazepines (3) Generalized anxiety disorder with panic attacks: Plan: #Generalized anxiety disorder with panic attacks -Continue home buspirone -Continue home citalopram (4) Acute bronchitis: Plan: #Acute bronchitis - Long smoking history, cough while in the room with the patient.given recent history of increasing shortness of breath, elevated white count laboratory, imaging findings suggestive of bronchitis was treated on admission Differential also includes URI with labyrinthitis We will continue azithromycin 5-day course started on admission -Twice daily budesonide -Continue home inhalers -As needed DuoNebs -Incentive spirometry and flutter valve (5) Vertigo: (6) Asthma: (7) Chronic pain: Plan: Chronic back pain No longer takes Flexeril -Continue buprenorphine -Continue gabapentin -Voltaren as needed - Defer additional benzos as above Admission and Anticipated Discharge Date Admission Date: May 25, 2021 Doroteo Gallo is seen at the bedside in the morning. He endorses some sinus congestion, some runny nose, and slight sore throat with cough for the last few days. This is in addition to his vertigo which is worsened and feels like room spinning and being on a ship when he moves his head, but which is not present when he was keeping his head still. Symptoms are not elicited by moving his eyes alone. He denies any hearing change, no loss of hearing in either ear, and no tinnitus. He has a history of high blood pressure on clonidine and lisinopril, has not had problems with either low blood pressure or low heart rate in the past. Also notes he is normally very warm, but feels more cold lately. Is on buprenorphine 8 mg twice daily at home. He reports he does take this, has not missed any doses, and has not had problems with hypotension with this in the past. He reports he has been given Ativan in the past which has given him a problem with prolonged sedation. Did get Valium last night. On morning assessment patient did appear stable with isolated vertigo in the setting of an otherwise negative evaluation. Given new persistent hypotension and bradycardia will observe overnight on telemetry and additional labs as noted below. Patient is agreeable to this Review of Systems Review of Systems: All systems reviewed & are unremarkable except as noted in Subjective Physical Exam Physical Exam: General: A&Ox3. NAD. Cooperative. HEENT: Atraumatic, normocephalic. Vision grossly intact. Hearing intact in both ears without asymmetry. EOMs intact without nystagmus. Lateral head rotation does immediately produce nausea and a spinning sensation. Pulm: CTAB A&P. -wheezes, -rales, -rhonchi. Symmetrical chest rise. No increase in work of breathing. No respiratory distress. Cardiac: Regular, bradycardic, -mrg. Radial pulses intact and symmetrical. Abdominal: Nontender, nondistended, soft. BS present. Results & Data Results & Data ([facility]) Vital Signs (Past 12 Hours) Vital Signs Temp Pulse Pulse Pulse Resp BP Pulse Ox 05/25/21 11:57 54 L 97/59 L 05/25/21 07:33 74 95/60 L 05/25/21 07:16 36.4 C L 62 17 93/55 L 94 05/25/21 03:00 36.6 C 82 18 155/84 H 96 05/25/21 02:42 63 16 96 05/25/21 02:33 66 16 132/73 93 PG Care Time/CCT Total # of Minutes Spent Total Time Spent with Patient: Total time spent is greater than 50% in coordination of care (as documented) at patient's floor/unit and/or counseling patient: Coding Level of Care Code 11274 Subseq Obs Care Lvl 2 Diagnoses Tobacco use disorder F17.200 Primary hypertension I10 Generalized anxiety disorder with panic attacks F41.1; F41.0 Acute bronchitis J20.9 Vertigo R42 Asthma J45.909 Chronic pain G89.29
--- NOTE | 2021-05-26 02:35 | Billing Data ---
Date of Service May 26, 2021 Coding Level of Care Code INT OBSERVATION CARE 70M LVL 3
[2021-05-26 07:06] LABS: BUN Creatinine Ratio 13.2 (10-20); Calcium 8.7 mg/dl (8.5-10.1); Creatinine Clr Calc Pharmacy 149.9 ml/min; Est GFR (African American) 130.4 ml/min; Est GFR (Non-African American) 112.5 ml/min
[2021-05-26] MEDS: cloNIDine HCL 0.1 MG TAB PO SCH (08:05)
[2021-05-26] MEDS: ENOXAPARIN INJ 40 MG/0.4 ML SYR SQ SCH ×2 (08:05→08:12)
[2021-05-26] MEDS: CITALOPRAM 20 MG TAB PO SCH (08:05)
[2021-05-26] MEDS: FLUTICASONE/VILANTEROL 200/25MCG 14 PUFFS/INHALER INH SCH (08:05)
[2021-05-26] MEDS: CHOLECALCIFEROL 1,000 UNITS 25 MCG TAB PO SCH (08:05)
[2021-05-26] MEDS: FOLIC ACID 1 MG TAB PO SCH (08:06)
[2021-05-26] MEDS: GABAPENTIN 800 MG TAB PO SCH (08:06)
[2021-05-26] MEDS: NICOTINE 14 MG/24 HR PATCH TD SCH (08:06)
[2021-05-26] MEDS: POLYETHYLENE (MIRALAX) 17 GM PACK PO SCH (08:08)
[2021-05-26] MEDS ORDERED: AZITHROMYCIN 250 MG TAB PO SCH (09:00)
[2021-05-26] MEDS ORDERED: predniSONE 20 MG TAB PO SCH (09:00)
[2021-05-26] MEDS ORDERED: buprenorphine HCL 8 MG SUBL SL SCH (09:00)
--- NOTE | 2021-05-27 06:33 | Electrocardiogram Report ---
Test Reason : Blood Pressure : / mmHG Vent. Rate : 059 BPM Atrial Rate : 059 BPM P-R Int : 116 ms QRS Dur : 086 ms QT Int : 424 ms P-R-T Axes : 054 052 059 degrees QTc Int : 419 ms Sinus bradycardia Otherwise normal ECG When compared with ECG of 24-MAY-2021 19:53, No significant change was found Confirmed by Navid Bates ([id number] on 05/27/2021 6:33:31 AM Referred By: Karishma Jimenez Confirmed By:Navid Bates
[2021-05-27 14:32] LABS: Anti Nuclear Antibody Screen NEGATIVE (NEGATIVE)
== END 2021-05-26 12:09 | disposition home or self-care (01) ==
LOC: ED 19:36 → 3N 19:36 → SUATTDRO 05-25 02:07 → 3N 05-25 02:42 → 2N 05-25 16:27
DX: G89.29 Other chronic pain; J45.909 Unspecified asthma, uncomplicated; Z98.890 Other specified postprocedural states; F41.0 Panic disorder [episodic paroxysmal anxiety]; F41.1 Generalized anxiety disorder; Z88.0 Allergy status to penicillin; I10 Essential (primary) hypertension; F17.210 Nicotine dependence, cigarettes, uncomplicated; Z98.1 Arthrodesis status; R42 Dizziness and giddiness